=== PATIENT | female | born 1975 | race Caucasian/White ===

== ENCOUNTER 2018-07-11 23:54 | Observation (INO) | payer OTHER ==
[2018-07-12] MEDS ORDERED: Nitrostat 0.4 MG (ED) SL ONE ×2 (00:23→00:36)
[2018-07-12] MEDS ORDERED: NITRO-BID 2% UD PACKETS TOP ONE (00:23)
[2018-07-12] MEDS ORDERED: BABY ASPIRIN 81 MG CHEW PO ONE (00:23)
[2018-07-12] MEDS ORDERED: Sodium Chloride 0.9% 1000 ML 1,000 ML IV SCH (00:30)
--- NOTE | 2018-07-12 00:33 | ERPHSYRPT ---
- History of Present Illness Time Seen by Provider: 07/12/18 00:15 Historian: patient Exam Limitations: clinical condition Patient Subjective Stated Complaint: Chest pain in middle of chest that radiates to back, pt has had pain for a week, describes as nawing and twisting, feels like she has a bubble in chest that needs to be popped, SOB some times with exertion Triage Nursing Assessment: Pt a/o, ambulated per self with no distress, heart sounds normal and regular, lungs clear, cap refill <3 secs Physician History: PATIENT WITH A HISTORY OF HYPOTHYROIDISM COMPLAINING OF SUBSTERNAL DISCOMFORT WHICH SHE DESCRIBES A BURNING INDIGESTION DISCOMFORT OVER THE PAST 5 DAYS ASSOCIATED WITH EXERTION DYSPNEA. PATIENT STATES ON OCCASION, THE PLAN RADIATES TO HER BACK. PATIENT STATES CHEST PAIN IMPROVES UPON REST AFTER EXERCISE PATIENT DENIES DIAPHORESIS, PALPITATIONS COUGHING OR FEVER. PATIENT RATES HER PAIN SCALE 8/10. Timing/Duration: day(s) Activities at Onset: none Quality: burning, other (INDESTION) Chest Pain Radiation: back Severity of Pain-Max: moderate Severity of Pain-Current: moderate Modifying Factors: Improves With: exertion Prior Chest Pain/Cardiac Workup: no prior chest pain Nitro Today/Relief: 0.4 mg x 2, provided by ED Aspirin Treatment Today: 81 mg x 4, provided by ED Allergies/Adverse Reactions: Penicillins Allergy (Verified 07/11/18 23:57) Home Medications: Levothyroxine Sodium 50 Mcg [Synthroid 50 Mcg] 50 mcg PO DAILY 07/11/18 [ History] clonazePAM [Klonopin] 1 mg PO TID PRN 07/11/18 [History] Hx Tetanus, Diphtheria Vaccination/Date Given: Yes Hx Influenza Vaccination/Date Given: No - Review of Systems Constitutional: No Fever, No Chills Eyes: No Symptoms Ears, Nose, & Throat: No Symptoms Respiratory: No Symptoms, No Cough, No Dyspnea Cardiac: Chest Pain, No Edema, No Syncope Abdominal/Gastrointestinal: No Symptoms, No Abdominal Pain, No Nausea, No Vomiting, No Diarrhea Genitourinary Symptoms: No Symptoms, No Dysuria Musculoskeletal: No Symptoms, No Back Pain, No Neck Pain Skin: No Rash Neurological: No Dizziness, No Focal Weakness, No Sensory Changes Psychological: No Symptoms Endocrine: No Symptoms All Other Systems: Reviewed and Negative - Past Medical History Pertinent Past Medical History: Yes Endocrine Medical History: Hypothyroidism Psycho-Social History: Anxiety, Depression - Past Surgical History Past Surgical History: Yes Musculoskeletal: Other Female Surgical History: Section Other Surgical History: R arm, R leg - Social History Smoking Status: Current every day smoker How long have you smoked: 16 years Drug Use: none - Female History Hx Now: No - Nursing Vital Signs Nursing Vital Signs: Initial Vital Signs Temperature 98.3 F 07/11/18 23:56 Pulse Rate 85 07/11/18 23:56 Respiratory Rate 20 07/11/18 23:56 Blood Pressure 144/95 07/11/18 23:56 O2 Sat by Pulse Oximetry 93 L 07/11/18 23:56 Pain Scale Pain Intensity 6 - Physical Exam General Appearance: no apparent distress, alert Eye Exam: PERRL/EOMI, eyes nml inspection Ears, Nose, Throat Exam: normal ENT inspection, moist mucous membranes Neck Exam: normal inspection, non-tender, supple, full range of motion Respiratory Exam: normal breath sounds, lungs clear, No respiratory distress Cardiovascular Exam: regular rate/rhythm, normal heart sounds Gastrointestinal/Abdomen Exam: soft, No tenderness, No mass Back Exam: normal inspection, No CVA tenderness, No vertebral tenderness Extremity Exam: normal inspection, normal range of motion, No pedal edema (+1) Neurologic Exam: alert, oriented x 3, cooperative, normal mood/affect, sensation nml, No motor deficits Skin Exam: normal color, warm, dry SpO2 Interpretation: normal SpO2: 93 Oxygen Delivery: Room Air - Course EKG Interpreted by Me: RATE, Sinus Rhythm, NORMAL AXIS (RATE 86) - Radiology Exams Chest X-ray Interpretation: Interpreted by me (MILD CARDIOMEGALY) Ordered Tests: Active Orders 24 hr Category Date Time Status Licensed Architect STAT Care 07/12/18 00:25 Active EKG-ER Only STAT Care 07/12/18 00:23 Active Oxygen-ED Only NASAL CANNULA 2 lpm Care 07/12/18 00:23 Active CHEST 1 VIEW (PORTABLE) Stat Exams 07/12/18 00:24 Taken CBC W DIFF Stat Lab 07/12/18 00:43 Completed CMP Stat Lab 07/12/18 00:43 Completed D-DIMER QUANTITATION Stat Lab 07/12/18 00:43 Completed MAGNESIUM Stat Lab 07/12/18 00:43 Completed NT PRO BNP Stat Lab 07/12/18 00:43 Completed PROTIME WITH INR Stat Lab 07/12/18 00:43 Completed TROPONIN Q3H Lab 07/12/18 00:43 Completed TROPONIN Q3H Lab 07/12/18 03:30 Ordered TROPONIN Q3H Lab 07/12/18 06:30 Ordered TROPONIN Q3H Lab 07/12/18 09:30 Ordered TROPONIN Q3H Lab 07/12/18 12:30 Ordered Transfer Order Routine Transfer 07/12/18 Ordered Medication Summary Generic Name Dose Route Start Last Admin Trade Name Freq PRN Reason Stop Dose Admin Sodium Chloride 1,000 mls @ 20 mls/hr 07/12/18 00:30 07/12/18 00:46 Sodium Chloride 0.9% 1000 Ml IV 08/11/18 00:29 20 mls/hr .Q24H [facility] Administration Discontinued Medications Generic Name Dose Route Start Last Admin Trade Name Freq PRN Reason Stop Dose Admin Aspirin 324 mg 07/12/18 00:23 07/12/18 00:46 Baby Aspirin 81 Mg Chew PO 07/12/18 00:24 324 mg STAT ONE Administration Aspirin Confirm 07/12/18 00:36 Baby Aspirin 81 Mg Chew Administered 07/12/18 00:37 Dose 324 mg .ROUTE .STK-MED ONE Nitroglycerin 0.4 mg 07/12/18 00:23 07/12/18 00:44 Nitrostat 0.4 Mg (Ed) SL 07/12/18 00:24 0.4 mg STAT ONE Administration Nitroglycerin 1 gm 07/12/18 00:23 07/12/18 00:43 Nitro-Bid 2% Ud Packets TOP 07/12/18 00:24 1 gm STAT ONE Administration Nitroglycerin Confirm 07/12/18 00:36 Nitro-Bid 2% Ud Packets Administered 07/12/18 00:37 Dose 1 gm .ROUTE .STK-MED ONE Nitroglycerin Confirm 07/12/18 00:36 Nitrostat 0.4 Mg (Ed) Administered 07/12/18 00:37 Dose 0.4 mg SL .STK-MED ONE Lab/Rad Data: Laboratory Result Diagrams 07/12/18 00:43 07/12/18 00:43 Laboratory Results 07/12/18 07/12/18 07/12/18 Range/Units 00:43 00:43 00:43 WBC (4.0-10.5) K/mm3 RBC (4.1-5.4) M/mm3 Hgb (12.0-16.0) gm/dl Hct (35-47) % MCV (78-100) fl MCH (26-32) pg MCHC (32-36) g/dl RDW (11.5-14.0) % Plt Count (150-450) K/mm3 MPV (6-9.5) fl Gran % (36.0-66.0) % Eos # (Auto) (0-0.5) Absolute Lymphs (auto) (1.0-4.6) Absolute Monos (auto) (0.0-1.3) Lymphocytes % (24.0-44.0) % Monocytes % (0.0-12.0) % Eosinophils % (0.00-5.0) % Basophils % (0.0-0.4) % Absolute Granulocytes (1.4-6.9) Basophils # (0-0.4) PT 11.3 (9.95-12.35) SECONDS INR 0.97 (0.8-3.0) D-Dimer 483 (215-500) ng/mL Sodium 139 (137-145) mmol/L Potassium 4.0 (3.5-5.1) mmol/L Chloride 100 (98-107) mmol/L Carbon Dioxide 32 H (22-30) mmol/L Anion Gap 10.4 (5-15) MEQ/L BUN 18 H (7-17) mg/dL Creatinine 0.86 (0.52-1.04) mg/dL Estimated GFR > 60.0 ML/MIN Glucose 81 (74-106) mg/dL Calcium 9.5 (8.4-10.2) mg/dL Magnesium 1.7 (1.6-2.3) mg/dL Total Bilirubin 0.70 (0.2-1.3) mg/dL AST 23 (14-36) U/L ALT 21 (0-35) U/L Alkaline Phosphatase 103 (38-126) U/L Troponin I < 0.012 (0.000-0.034) ng/mL NT-Pro-B Natriuret Pep 47.9 (0-450) pg/mL Serum Total Protein 7.7 (6.3-8.2) g/dL Albumin 4.1 (3.5-5.0) g/dL 07/12/18 Range/Units 00:43 WBC 9.0 (4.0-10.5) K/mm3 RBC 4.63 (4.1-5.4) M/mm3 Hgb 13.2 (12.0-16.0) gm/dl Hct 42.5 (35-47) % MCV 91.8 (78-100) fl MCH 28.5 (26-32) pg MCHC 31.1 L (32-36) g/dl RDW 15.1 H (11.5-14.0) % Plt Count 293 (150-450) K/mm3 MPV 10.1 H (6-9.5) fl Gran % 70.1 H (36.0-66.0) % Eos # (Auto) 0.08 (0-0.5) Absolute Lymphs (auto) 1.69 (1.0-4.6) Absolute Monos (auto) 0.90 (0.0-1.3) Lymphocytes % 18.8 L (24.0-44.0) % Monocytes % 10.0 (0.0-12.0) % Eosinophils % 0.9 (0.00-5.0) % Basophils % 0.2 (0.0-0.4) % Absolute Granulocytes 6.31 (1.4-6.9) Basophils # 0.02 (0-0.4) PT (9.95-12.35) SECONDS INR (0.8-3.0) D-Dimer (215-500) ng/mL Sodium (137-145) mmol/L Potassium (3.5-5.1) mmol/L Chloride (98-107) mmol/L Carbon Dioxide (22-30) mmol/L Anion Gap (5-15) MEQ/L BUN (7-17) mg/dL Creatinine (0.52-1.04) mg/dL Estimated GFR ML/MIN Glucose (74-106) mg/dL Calcium (8.4-10.2) mg/dL Magnesium (1.6-2.3) mg/dL Total Bilirubin (0.2-1.3) mg/dL AST (14-36) U/L ALT (0-35) U/L Alkaline Phosphatase (38-126) U/L Troponin I (0.000-0.034) ng/mL NT-Pro-B Natriuret Pep (0-450) pg/mL Serum Total Protein (6.3-8.2) g/dL Albumin (3.5-5.0) g/dL - Progress Progress Note: 07/12/18 01:49 ADMINISTERED BABY ASA X 4, NTG 0.4MG SL, APPLICATION NITROPASTE 1" ANTERIOR CHEST WALL, CHEST PAIN IMPROVED Discussed with Dr.: Gomez (DISCUSSED WITH DR GOMEZ AT 0150 FOR OBSERVATION) - Departure Time of Disposition: 02:00 Departure Disposition: Observation Clinical Impression: ACUTE CHEST PAIN Condition: Stable Critical Care Time: No Referrals: PEYTON MUÑOZ [Primary Care Provider] -
[2018-07-12] MEDS ORDERED: NITRO-BID 2% UD PACKETS ONE (00:36)
[2018-07-12] MEDS ORDERED: BABY ASPIRIN 81 MG CHEW ONE (00:36)
[2018-07-12 00:52] LABS: BASOPHIL % 0.2 % (0.0-0.4); Basophil (Absolute #) 0.02 (0-0.4); Eosinophil % 0.9 % (0.00-5.0); Eosinophil (Absolute #) 0.08 (0-0.5); Granulocyte Absolute (ANC) 6.31 (1.4-6.9); Granulocytes % 70.1 % (36.0-66.0); Hematocrit 42.5 % (35-47); Hemoglobin 13.2 gm/dl (12.0-16.0); Lymphocyte (Absolute #) 1.69 (1.0-4.6); Lymphocytes % 18.8 % (24.0-44.0); Mean Cell Volume 91.8 fl (78-100); Mean Corpuscular Hemoglobin 28.5 pg (26-32); Mean Corpuscular Hgb Concent. 31.1 g/dl (32-36); Mean Platelet Volume 10.1 fl (6-9.5); Platelet Count 293 K/mm3 (150-450); Red Blood Count 4.63 M/mm3 (4.1-5.4); Red Cell Distribution Width 15.1 % (11.5-14.0)
[2018-07-12 01:05] LABS: INR 0.97 (0.8-3.0)
[2018-07-12 01:07] LABS: ALBUMIN 4.1 g/dL (3.5-5.0); ALKALINE PHOSPHATASE 103 U/L (38-126); ANION GAP 10.4 MEQ/L (5-15); BLOOD UREA NITROGEN 18 mg/dL (7-17); CHLORIDE 100 mmol/L (98-107); Calcium 9.5 mg/dL (8.4-10.2); Carbon Dioxide 32 mmol/L (22-30); Creatinine 1 0.86 mg/dL (0.52-1.04); Glucose 81 mg/dL (74-106); NT PRO BNP 47.9 pg/mL (0-450); SGOT/AST 23 U/L (14-36); SGPT/ALT 21 U/L (0-35); SODIUM 139 mmol/L (137-145); Total Protein 7.7 g/dL (6.3-8.2)
[2018-07-12] MEDS ORDERED: MORPHINE SULFATE 2 MG INJ IV PRN (02:33)
[2018-07-12] MEDS ORDERED: MAALOX ES 30 ML UNIT DOSE PO PRN (02:33)
[2018-07-12] MEDS ORDERED: MILK OF MAGNESIA 30 ML PO PRN (02:33)
[2018-07-12] MEDS ORDERED: TYLENOL 325 MG PO PRN (02:33)
[2018-07-12] MEDS ORDERED: Zofran 4 MG/2 ML VIAL IV PRN (02:33)
[2018-07-12] MEDS ORDERED: Senokot-S Tablet PO PRN (02:33)
[2018-07-12] MEDS ORDERED: Nitrostat 0.4 MG Tablet SL PRN (02:33)
[2018-07-12] MEDS ORDERED: Klonopin 0.5 MG PO PRN (07:15)
[2018-07-12 07:26] LABS: Cholesterol 116 mg/dL (50-200); HDL CHOLESTEROL 47 mg/dL (40-60); LDL, DIRECT 62 mg/dL (30-100); Risk Ratio 2.5; TRIGLYCERIDE 69 mg/dL (30-150)
[2018-07-12 07:27] LABS: TROPONIN < 0.012 ng/mL (0.000-0.034)
--- NOTE | 2018-07-12 09:36 | XRAY ---
Indication: Chest pain. Comparison: None Portable apical lordotic chest demonstrates a few calcified granulomas, largest right upper lobe. Remaining heart, lungs, and bony thorax normal.
[2018-07-12] MEDS ORDERED: Ecotrin 325 MG PO SCH (10:00)
[2018-07-12] MEDS ORDERED: SYNTHROID 50 MCG PO SCH (10:00)
[2018-07-12] MEDS ORDERED: Pepcid 20 MG VIAL IV SCH (10:00)
--- NOTE | 2018-07-12 12:37 | PCM.SSS ---
History of Present Illness - Chief Complaint Chief Complaint: chest pain rule out History of Present Illness: is a 42 year old female morbidly obese, hypothyroid pt of Dr. Muñoz who came to ER c/o chest pain and neck pain. She had pain x 1 week intermittently, but was more constant for the past 3 d. 8/10 substernal chest pain, sharp, radiating into the back. no N, + palpitations and + diaphoresis. She also c/o pain in the neck that was 7/10, pressure, "in the glands." EKG non acute. troponin negative. Admitted for CP r/o PR. She has + FHx coronary artery disease; parents both had CAD starting in their 50s. She does smoke 3/4 pack cigarettes/d. She hasn't seen Dr. Muñoz since March 2018. She stopped taking her thyroid medicine x 6 weeks because she couldn't remember to take it - she did start taking it again 4d ago. This morning her chest pain is down to 2/10. Still having neck discomfort. - Review of Systems Ears, Nose, & Throat: Other (neck pain) Respiratory: Cough (overall no cough but did have mild sputum production yesterday) Cardiac: Chest Pain Abdominal/Gastrointestinal: Diarrhea (2d ago) Psychological: Anxiety (this month about her health), No Depression, No Suicidal Ideations Medications & Allergies Home Medications: Home Medication List Levothyroxine Sodium 50 Mcg [Synthroid 50 Mcg] 50 mcg PO DAILY 07/11/18 [ History Confirmed 07/12/18] clonazePAM [Klonopin] 1 mg PO TID PRN 07/11/18 [History Confirmed 07/12/18] Citalopram Hydrobromide 20 mg* [ceLEXa 20 MG] 20 mg PO DAILY 07/12/18 [ History Confirmed 07/12/18] Allergies/Adverse Reactions: Allergies Allergy/AdvReac Type Severity Reaction Status Date / Time Penicillins Allergy Verified 07/11/18 23:57 - Past Medical History Past Medical History: Yes Neurological History: No Pertinent History ENT History: No Pertinent History Cardiac History: No Pertinent History Respiratory History: Bronchitis Endocrine Medical History: No Pertinent History, Hypothyroidism Musculoskelatal History: Arthritis, Fractures GI Medical History: No Pertinent History History: No Pertinent History Pyscho-Social History: Anxiety, Depression, Panic Disorder Reproductive Disorders: No Pertinent History Comment: fx lt leg, rt ankle with 7 screws and a plate, pins to rt elbow - Female History Are you now?: No - Past Surgical History Past Surgical History: Yes Neuro Surgical History: No Pertinent History Cardiac History: No Pertinent History Respiratory Surgery: No Pertinent History Genitourinary Surgical Hx: No Pertinent History Musculskeletal Surgical Hx: Orthopedic Surgery Female Surgical History: Section, Tubal Ligation Other Surgical History: R arm, R leg - Social History Smoking Status: Current every day smoker How long have you smoked: 16 yrs Exposure to second hand smoke: Yes Alcohol: Rarely Drug Use: none - Physical Exam Vital Signs: Vital Signs - 24 hr Temp Pulse Pulse Resp BP Pulse Ox 07/12/18 07:14 95 07/12/18 07:11 98.1 F 80 18 122/72 94 L 07/12/18 03:05 98.2 F 85 19 115/73 96 07/12/18 01:59 93 L 07/12/18 01:57 80 21 114/70 97 07/12/18 01:08 85 20 105/81 98 07/12/18 00:03 88 07/11/18 23:56 98.3 F 85 20 144/95 93 L Oxygen-Last 24 hours O2 Percentage 2 Liters = 28% O2 Percentage 2 Liters = 28% O2 Percentage 2 Liters = 28% O2 Percentage 2 Liters = 28% General Appearance: no apparent distress, obese (morbidly) Neurologic Exam: alert, oriented x 3, cooperative Eye Exam: eyes nml inspection Ears, Nose, Throat Exam: pharynx normal, moist mucous membranes, No pharyngeal erythema Neck Exam: normal inspection, non-tender, No lymphadenopathy Respiratory Exam: normal breath sounds, lungs clear, No crackles/rales, No rhonchi, No wheezing Cardiovascular Exam: regular rate/rhythm, normal heart sounds, No murmur Gastrointestinal/Abdomen Exam: soft, normal bowel sounds, other (well healed midline scar), No tenderness, No distention, No mass, No guarding, No rebound Back Exam: normal inspection, No rash Extremity Exam: No pedal edema, No swelling Skin Exam: normal color, warm, dry, No rash Results - Labs Lab/Micro Results: Lab Results-Last 24 Hours 07/12/18 07/12/18 07/12/18 Range/Units 00:43 00:43 00:43 WBC 9.0 (4.0-10.5) K/mm3 RBC 4.63 (4.1-5.4) M/mm3 Hgb 13.2 (12.0-16.0) gm/dl Hct 42.5 (35-47) % MCV 91.8 (78-100) fl MCH 28.5 (26-32) pg MCHC 31.1 L (32-36) g/dl RDW 15.1 H (11.5-14.0) % Plt Count 293 (150-450) K/mm3 MPV 10.1 H (6-9.5) fl Gran % 70.1 H (36.0-66.0) % Eos # (Auto) 0.08 (0-0.5) Absolute Lymphs (auto) 1.69 (1.0-4.6) Absolute Monos (auto) 0.90 (0.0-1.3) Lymphocytes % 18.8 L (24.0-44.0) % Monocytes % 10.0 (0.0-12.0) % Eosinophils % 0.9 (0.00-5.0) % Basophils % 0.2 (0.0-0.4) % Absolute Granulocytes 6.31 (1.4-6.9) Basophils # 0.02 (0-0.4) PT 11.3 (9.95-12.35) SECONDS INR 0.97 (0.8-3.0) D-Dimer 483 (215-500) ng/mL Sodium 139 (137-145) mmol/L Potassium 4.0 (3.5-5.1) mmol/L Chloride 100 (98-107) mmol/L Carbon Dioxide 32 H (22-30) mmol/L Anion Gap 10.4 (5-15) MEQ/L BUN 18 H (7-17) mg/dL Creatinine 0.86 (0.52-1.04) mg/dL Estimated GFR > 60.0 ML/MIN Glucose 81 (74-106) mg/dL Calcium 9.5 (8.4-10.2) mg/dL Magnesium 1.7 (1.6-2.3) mg/dL Total Bilirubin 0.70 (0.2-1.3) mg/dL AST 23 (14-36) U/L ALT 21 (0-35) U/L Alkaline Phosphatase 103 (38-126) U/L Troponin I (0.000-0.034) ng/mL NT-Pro-B Natriuret Pep 47.9 (0-450) pg/mL Serum Total Protein 7.7 (6.3-8.2) g/dL Albumin 4.1 (3.5-5.0) g/dL Triglycerides (30-150) mg/dL Cholesterol (50-200) mg/dL LDL Cholesterol (30-100) mg/dL HDL Cholesterol (40-60) mg/dL Heart Disease Risk Ratio 07/12/18 07/12/18 07/12/18 Range/Units 00:43 04:14 06:35 WBC (4.0-10.5) K/mm3 RBC (4.1-5.4) M/mm3 Hgb (12.0-16.0) gm/dl Hct (35-47) % MCV (78-100) fl MCH (26-32) pg MCHC (32-36) g/dl RDW (11.5-14.0) % Plt Count (150-450) K/mm3 MPV (6-9.5) fl Gran % (36.0-66.0) % Eos # (Auto) (0-0.5) Absolute Lymphs (auto) (1.0-4.6) Absolute Monos (auto) (0.0-1.3) Lymphocytes % (24.0-44.0) % Monocytes % (0.0-12.0) % Eosinophils % (0.00-5.0) % Basophils % (0.0-0.4) % Absolute Granulocytes (1.4-6.9) Basophils # (0-0.4) PT (9.95-12.35) SECONDS INR (0.8-3.0) D-Dimer (215-500) ng/mL Sodium (137-145) mmol/L Potassium (3.5-5.1) mmol/L Chloride (98-107) mmol/L Carbon Dioxide (22-30) mmol/L Anion Gap (5-15) MEQ/L BUN (7-17) mg/dL Creatinine (0.52-1.04) mg/dL Estimated GFR ML/MIN Glucose (74-106) mg/dL Calcium (8.4-10.2) mg/dL Magnesium (1.6-2.3) mg/dL Total Bilirubin (0.2-1.3) mg/dL AST (14-36) U/L ALT (0-35) U/L Alkaline Phosphatase (38-126) U/L Troponin I < 0.012 < 0.012 < 0.012 (0.000-0.034) ng/mL NT-Pro-B Natriuret Pep (0-450) pg/mL Serum Total Protein (6.3-8.2) g/dL Albumin (3.5-5.0) g/dL Triglycerides 69 (30-150) mg/dL Cholesterol 116 (50-200) mg/dL LDL Cholesterol 62 (30-100) mg/dL HDL Cholesterol 47 (40-60) mg/dL Heart Disease Risk Ratio 2.5 07/12/18 Range/Units 09:35 WBC (4.0-10.5) K/mm3 RBC (4.1-5.4) M/mm3 Hgb (12.0-16.0) gm/dl Hct (35-47) % MCV (78-100) fl MCH (26-32) pg MCHC (32-36) g/dl RDW (11.5-14.0) % Plt Count (150-450) K/mm3 MPV (6-9.5) fl Gran % (36.0-66.0) % Eos # (Auto) (0-0.5) Absolute Lymphs (auto) (1.0-4.6) Absolute Monos (auto) (0.0-1.3) Lymphocytes % (24.0-44.0) % Monocytes % (0.0-12.0) % Eosinophils % (0.00-5.0) % Basophils % (0.0-0.4) % Absolute Granulocytes (1.4-6.9) Basophils # (0-0.4) PT (9.95-12.35) SECONDS INR (0.8-3.0) D-Dimer (215-500) ng/mL Sodium (137-145) mmol/L Potassium (3.5-5.1) mmol/L Chloride (98-107) mmol/L Carbon Dioxide (22-30) mmol/L Anion Gap (5-15) MEQ/L BUN (7-17) mg/dL Creatinine (0.52-1.04) mg/dL Estimated GFR ML/MIN Glucose (74-106) mg/dL Calcium (8.4-10.2) mg/dL Magnesium (1.6-2.3) mg/dL Total Bilirubin (0.2-1.3) mg/dL AST (14-36) U/L ALT (0-35) U/L Alkaline Phosphatase (38-126) U/L Troponin I < 0.012 (0.000-0.034) ng/mL NT-Pro-B Natriuret Pep (0-450) pg/mL Serum Total Protein (6.3-8.2) g/dL Albumin (3.5-5.0) g/dL Triglycerides (30-150) mg/dL Cholesterol (50-200) mg/dL LDL Cholesterol (30-100) mg/dL HDL Cholesterol (40-60) mg/dL Heart Disease Risk Ratio - Radiology Impressions Radiology Exams & Impressions: Radiology Procedures Category Date Time Status CHEST 1 VIEW (PORTABLE) Stat Exams 07/12/18 00:24 Completed - Other Procedures and Tests Respiratory Therapy 07/13/18 05:00 EKG ROUTINE 07/14/18 05:00 EKG ROUTINE 07/15/18 05:00 EKG ROUTINE Assessment/Plan (1) Chest pain Current Visit: Yes Status: Acute Qualifiers: Chest pain type: unspecified Qualified Code(s): R07.9 - Chest pain, unspecified Assessment & Plan: PR ruled out. Pain much better. She is morbidly obese and a smoker with positive family history - she needs to f/u MALINDA with Dr. Muñoz's office for an outpatient stress test. Code(s): R07.9 - CHEST PAIN, UNSPECIFIED (2) Neck pain Current Visit: Yes Status: Acute Assessment & Plan: could be related to thyroid or simply lymph nodes. Code(s): M54.2 - CERVICALGIA (3) Morbid obesity Current Visit: Yes Status: Chronic Code(s): E66.01 - MORBID (SEVERE) OBESITY DUE TO EXCESS CALORIES (4) Tobacco abuse Current Visit: Yes Status: Chronic Code(s): Z72.0 - TOBACCO USE (5) Hypothyroid Current Visit: Yes Status: Chronic Qualifiers: Hypothyroidism type: unspecified Qualified Code(s): E03.9 - Hypothyroidism , unspecified Assessment & Plan: rechecking TSH today, but she has only had 4d of synthroid after being off of it x 6 weeks. Code(s): E03.9 - HYPOTHYROIDISM, UNSPECIFIED Hospital Summary - Hospital Course Hospital Course: Pt is 42 yo female pt of Dr. Muñoz with morbid obesity, tobacco use disorder, and hypothyroidism admitted with chest pain and neck pain; troponins have been negative x 4, and after the 5th troponin is negative she will be discharged to home. She needs to f/u outpatient with Dr. Muñoz's office regarding her thyroid (has been off her synthroid) and to get an outpatient stress test.. CXR in ER with few calcified granulomas, nonacute. She is being discharged to home this afternoon. - Vitals & Intake/Output Vital Signs: Vital Signs Temperature 98.1 F 07/12/18 07:11 Pulse Rate 80 07/12/18 07:11 Respiratory Rate 18 07/12/18 07:11 Blood Pressure 122/72 07/12/18 07:11 O2 Sat by Pulse Oximetry 95 07/12/18 07:14 Oxygen-Last Documented O2 Percentage 2 Liters = 28% Intake & Output: Intake & Output 07/10/18 07/11/18 07/12/18 07/13/18 11:59 11:59 11:59 11:59 Intake Total 480 Balance 480 Weight 186 kg - Lab Result Diagrams: 07/12/18 00:43 07/12/18 00:43 Lab Results-Last 24 Hrs: Lab Results-Last 24 Hours 07/12/18 07/12/18 07/12/18 Range/Units 00:43 00:43 00:43 WBC 9.0 (4.0-10.5) K/mm3 RBC 4.63 (4.1-5.4) M/mm3 Hgb 13.2 (12.0-16.0) gm/dl Hct 42.5 (35-47) % MCV 91.8 (78-100) fl MCH 28.5 (26-32) pg MCHC 31.1 L (32-36) g/dl RDW 15.1 H (11.5-14.0) % Plt Count 293 (150-450) K/mm3 MPV 10.1 H (6-9.5) fl Gran % 70.1 H (36.0-66.0) % Eos # (Auto) 0.08 (0-0.5) Absolute Lymphs (auto) 1.69 (1.0-4.6) Absolute Monos (auto) 0.90 (0.0-1.3) Lymphocytes % 18.8 L (24.0-44.0) % Monocytes % 10.0 (0.0-12.0) % Eosinophils % 0.9 (0.00-5.0) % Basophils % 0.2 (0.0-0.4) % Absolute Granulocytes 6.31 (1.4-6.9) Basophils # 0.02 (0-0.4) PT 11.3 (9.95-12.35) SECONDS INR 0.97 (0.8-3.0) D-Dimer 483 (215-500) ng/mL Sodium 139 (137-145) mmol/L Potassium 4.0 (3.5-5.1) mmol/L Chloride 100 (98-107) mmol/L Carbon Dioxide 32 H (22-30) mmol/L Anion Gap 10.4 (5-15) MEQ/L BUN 18 H (7-17) mg/dL Creatinine 0.86 (0.52-1.04) mg/dL Estimated GFR > 60.0 ML/MIN Glucose 81 (74-106) mg/dL Calcium 9.5 (8.4-10.2) mg/dL Magnesium 1.7 (1.6-2.3) mg/dL Total Bilirubin 0.70 (0.2-1.3) mg/dL AST 23 (14-36) U/L ALT 21 (0-35) U/L Alkaline Phosphatase 103 (38-126) U/L Troponin I (0.000-0.034) ng/mL NT-Pro-B Natriuret Pep 47.9 (0-450) pg/mL Serum Total Protein 7.7 (6.3-8.2) g/dL Albumin 4.1 (3.5-5.0) g/dL Triglycerides (30-150) mg/dL Cholesterol (50-200) mg/dL LDL Cholesterol (30-100) mg/dL HDL Cholesterol (40-60) mg/dL Heart Disease Risk Ratio 07/12/18 07/12/18 07/12/18 Range/Units 00:43 04:14 06:35 WBC (4.0-10.5) K/mm3 RBC (4.1-5.4) M/mm3 Hgb (12.0-16.0) gm/dl Hct (35-47) % MCV (78-100) fl MCH (26-32) pg MCHC (32-36) g/dl RDW (11.5-14.0) % Plt Count (150-450) K/mm3 MPV (6-9.5) fl Gran % (36.0-66.0) % Eos # (Auto) (0-0.5) Absolute Lymphs (auto) (1.0-4.6) Absolute Monos (auto) (0.0-1.3) Lymphocytes % (24.0-44.0) % Monocytes % (0.0-12.0) % Eosinophils % (0.00-5.0) % Basophils % (0.0-0.4) % Absolute Granulocytes (1.4-6.9) Basophils # (0-0.4) PT (9.95-12.35) SECONDS INR (0.8-3.0) D-Dimer (215-500) ng/mL Sodium (137-145) mmol/L Potassium (3.5-5.1) mmol/L Chloride (98-107) mmol/L Carbon Dioxide (22-30) mmol/L Anion Gap (5-15) MEQ/L BUN (7-17) mg/dL Creatinine (0.52-1.04) mg/dL Estimated GFR ML/MIN Glucose (74-106) mg/dL Calcium (8.4-10.2) mg/dL Magnesium (1.6-2.3) mg/dL Total Bilirubin (0.2-1.3) mg/dL AST (14-36) U/L ALT (0-35) U/L Alkaline Phosphatase (38-126) U/L Troponin I < 0.012 < 0.012 < 0.012 (0.000-0.034) ng/mL NT-Pro-B Natriuret Pep (0-450) pg/mL Serum Total Protein (6.3-8.2) g/dL Albumin (3.5-5.0) g/dL Triglycerides 69 (30-150) mg/dL Cholesterol 116 (50-200) mg/dL LDL Cholesterol 62 (30-100) mg/dL HDL Cholesterol 47 (40-60) mg/dL Heart Disease Risk Ratio 2.5 07/12/18 Range/Units 09:35 WBC (4.0-10.5) K/mm3 RBC (4.1-5.4) M/mm3 Hgb (12.0-16.0) gm/dl Hct (35-47) % MCV (78-100) fl MCH (26-32) pg MCHC (32-36) g/dl RDW (11.5-14.0) % Plt Count (150-450) K/mm3 MPV (6-9.5) fl Gran % (36.0-66.0) % Eos # (Auto) (0-0.5) Absolute Lymphs (auto) (1.0-4.6) Absolute Monos (auto) (0.0-1.3) Lymphocytes % (24.0-44.0) % Monocytes % (0.0-12.0) % Eosinophils % (0.00-5.0) % Basophils % (0.0-0.4) % Absolute Granulocytes (1.4-6.9) Basophils # (0-0.4) PT (9.95-12.35) SECONDS INR (0.8-3.0) D-Dimer (215-500) ng/mL Sodium (137-145) mmol/L Potassium (3.5-5.1) mmol/L Chloride (98-107) mmol/L Carbon Dioxide (22-30) mmol/L Anion Gap (5-15) MEQ/L BUN (7-17) mg/dL Creatinine (0.52-1.04) mg/dL Estimated GFR ML/MIN Glucose (74-106) mg/dL Calcium (8.4-10.2) mg/dL Magnesium (1.6-2.3) mg/dL Total Bilirubin (0.2-1.3) mg/dL AST (14-36) U/L ALT (0-35) U/L Alkaline Phosphatase (38-126) U/L Troponin I < 0.012 (0.000-0.034) ng/mL NT-Pro-B Natriuret Pep (0-450) pg/mL Serum Total Protein (6.3-8.2) g/dL Albumin (3.5-5.0) g/dL Triglycerides (30-150) mg/dL Cholesterol (50-200) mg/dL LDL Cholesterol (30-100) mg/dL HDL Cholesterol (40-60) mg/dL Heart Disease Risk Ratio - Radiology Exams Ordered Rad Exams-Entire Visit: Radiology Procedures Category Date Time Status CHEST 1 VIEW (PORTABLE) Stat Exams 07/12/18 00:24 Completed - Procedures and Test Procedures and Tests throughout Hospitalization: Therapy Orders & Screens 07/12/18 03:27 Smoking Cessation Education ONCE Comment: Diagnosis: chest pain rule out Smoking Status: Current every day smoker How long have you smoked: 16 yrs Have you smoked in the past 12 months: Yes Approximately how many cigarettes per day: 15 Do you dip or chew tobacco: No 07/12/18 08:00 EKG ROUTINE Comment: Diagnosis: ACUTE CHEST PAIN 07/13/18 05:00 EKG ROUTINE Comment: Diagnosis: ACUTE CHEST PAIN 07/14/18 05:00 EKG ROUTINE Comment: Diagnosis: ACUTE CHEST PAIN 07/15/18 05:00 EKG ROUTINE Comment: Diagnosis: ACUTE CHEST PAIN - Discharge Disposition: Home, Self-Care Condition: Stable Prescriptions: Continue Levothyroxine Sodium 50 Mcg [Synthroid 50 Mcg] 50 mcg PO DAILY clonazePAM [Klonopin] 1 mg PO TID PRN Citalopram Hydrobromide 20 mg* [ceLEXa 20 MG] 20 mg PO DAILY Follow up with: PEYTON MUÑOZ [Primary Care Provider] - 1 Week
[2018-07-12 13:12] VITALS: BP 136/69; PULSE 75; O2SAT 93
== END 2018-07-12 14:30 | disposition home or self-care (01) ==
LOC: ED 23:54 → MED SURG 07-12 02:27
PROVIDERS: ADMIT Family Medicine; ATTEND Family Medicine
DX: R07.9 Chest pain, unspecified (principal); M54.2 Cervicalgia; E66.01 Morbid (severe) obesity due to excess calories; Z72.0 Tobacco use; E03.9 Hypothyroidism, unspecified
CPT/HCPCS: 36415; 71045; 80053; 80061; 83721; 83735; 83880; 84443; 84484; 85025; 85379; 85610; 93005; 93041; 93268; 94760; 96360; 99285; A9270-GY; G0378

== ENCOUNTER 2018-09-24 01:42 | Emergency (ER) | payer MEDICAID, OTHER ==
--- NOTE | 2018-09-24 02:01 | ERPHSYRPT ---
- History of Present Illness Time Seen by Provider: 09/24/18 02:00 Source: patient Patient Subjective Stated Complaint: states she has noticed a warm/hot hardened area nehins left breast nipple that is very painful and hurting. Triage Nursing Assessment: pt alert nad orietnedx3, able to ambulate by self gait is steady, skin warm dry and intact, both breast appear symetrical hardened area able to be palpated behind left nipple and some heat noted on skin of left breast in same location. Physician History: 43 y/o obese white female presents with tender, warm left breast and an associated infranipple mass. tendernes and mass came up within 2 to 3 days. pt is allergic to pcns but has taken keflex without any problems in the past Timing/Duration: day(s) (2 to 3) Severity: mild Allergies/Adverse Reactions: Penicillins Allergy (Verified 07/11/18 23:57) Home Medications: Levothyroxine Sodium 50 Mcg [Synthroid 50 Mcg] 50 mcg PO DAILY 07/11/18 [ History] clonazePAM [Klonopin] 1 mg PO TID PRN 07/11/18 [History] Citalopram Hydrobromide 20 mg* [ceLEXa 20 MG] 20 mg PO DAILY 07/12/18 [ History] Hx Tetanus, Diphtheria Vaccination/Date Given: Yes Hx Influenza Vaccination/Date Given: No Hx Pneumococcal Vaccination/Date Given: No Immunizations Up to Date: Yes - Review of Systems Constitutional: No Symptoms Eyes: No Symptoms Ears, Nose, & Throat: No Symptoms Respiratory: No Symptoms Cardiac: No Symptoms Abdominal/Gastrointestinal: No Symptoms Genitourinary Symptoms: No Symptoms Musculoskeletal: No Symptoms Skin: Other (tender left nipple with assoc mass) Neurological: No Symptoms Psychological: No Symptoms Endocrine: No Symptoms Hematologic/Lymphatic: No Symptoms Immunological/Allergic: No Symptoms All Other Systems: Reviewed and Negative - Past Medical History Pertinent Past Medical History: Yes Neurological History: No Pertinent History ENT History: No Pertinent History Cardiac History: No Pertinent History Respiratory History: Bronchitis Endocrine Medical History: No Pertinent History, Hypothyroidism Musculoskeletal History: Arthritis, Fractures GI Medical History: No Pertinent History History: No Pertinent History Psycho-Social History: Anxiety, Depression, Panic Disorder Female Reproductive Disorders: No Pertinent History Other Medical History: fx lt leg, rt ankle with 7 screws and a plate, pins to rt elbow - Past Surgical History Past Surgical History: Yes Neuro Surgical History: No Pertinent History Cardiac: No Pertinent History Respiratory: No Pertinent History Genitourinary: No Pertinent History Musculoskeletal: Orthopedic Surgery Female Surgical History: Section, Tubal Ligation Other Surgical History: R arm, R leg - Social History Smoking Status: Current every day smoker How long have you smoked: 16 yrs Exposure to second hand smoke: Yes Drug Use: none Patient Lives Alone: No - Female History Hx Now: No - Nursing Vital Signs Nursing Vital Signs: Initial Vital Signs Temperature 98.1 F 09/24/18 01:43 Pulse Rate 91 H 09/24/18 01:43 Respiratory Rate 20 09/24/18 01:43 Blood Pressure 154/97 09/24/18 01:43 O2 Sat by Pulse Oximetry 97 09/24/18 01:43 Pain Scale Pain Intensity 8 - Physical Exam General Appearance: no apparent distress, alert, anxiety Eye Exam: PERRL/EOMI, eyes nml inspection Ears, Nose, Throat Exam: normal ENT inspection, moist mucous membranes Neck Exam: normal inspection, non-tender, supple, full range of motion Respiratory Exam: normal breath sounds, lungs clear, airway intact, No chest tenderness, No respiratory distress, No accessory muscle use, No rhonchi, No wheezing, No stridor Cardiovascular Exam: regular rate/rhythm, normal heart sounds, normal peripheral pulses Gastrointestinal/Abdomen Exam: soft Pelvic Exam: not done Rectal Exam: not done Back Exam: normal inspection, normal range of motion, No CVA tenderness, No vertebral tenderness Extremity Exam: normal inspection, normal range of motion, pelvis stable Neurologic Exam: alert, oriented x 3, cooperative, 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 Skin Exam: warm, other (tender left nipple with infranipple palpable subq mass; no drainage.) Lymphatic Exam: No adenopathy SpO2 Interpretation: normal SpO2: 97 O2 Delivery: Room Air - Course Nursing assessment & vital signs reviewed: Yes Ordered Tests: Medication Summary Discontinued Medications Generic Name Dose Route Start Last Admin Trade Name Freq PRN Reason Stop Dose Admin Hydrocodone Bitart/Acetaminophen Confirm 09/24/18 02:44 [place] 5/325 Mg Administered 09/24/18 02:45 Dose 1 tab .ROUTE .STK-MED ONE Cephalexin HCl Confirm 09/24/18 02:43 Keflex 500 Mg Administered 09/24/18 02:44 Dose 500 mg .ROUTE .STK-MED ONE - Progress Progress: unchanged, pain not gone completely Counseled pt/family regarding: diagnosis, need for follow-up - Departure Time of Disposition: 02:52 Departure Disposition: Home Clinical Impression: Breast infection Condition: Stable Critical Care Time: No Referrals: PEYTON MUÑOZ [Primary Care Provider] - Additional Instructions: warm compresses or heating pad on warm setting, not directly on skin, apply 3 times daily. follow up with primary doctor today by phone to arrange follow up appointment including ultrasound if indicated. may add ibuprofen for pain. Prescriptions: Cephalexin Mh 500 mg [Keflex 500 mg] 500 mg PO TID #21 capsule
[2018-09-24 02:43] VITALS: O2SAT 97
[2018-09-24] MEDS ORDERED: KEFLEX 500 MG ONE (02:43)
[2018-09-24] MEDS ORDERED: NORCO 5/325 MG ONE (02:44)
[2018-09-24] MEDS ORDERED: KEFLEX 500 MG PO ONE (02:48)
[2018-09-24] MEDS: NORCO 5/325 MG PO ONE ×2 (02:50→06:24)
[2018-09-24 05:46] VITALS: BP 156/98; PULSE 84
== END 2018-09-24 03:04 | disposition home or self-care (01) ==
LOC: ED 01:42
DX: N61.0 Mastitis without abscess (principal); N64.4 Mastodynia; E03.9 Hypothyroidism, unspecified; F41.8 Other specified anxiety disorders
CPT/HCPCS: 99283; A9270-GY

== ENCOUNTER 2019-10-08 18:35 | Emergency (ER) | payer MEDICAID ==
[2019-10-08 19:49] VITALS: PULSE 80; O2SAT 95
--- NOTE | 2019-10-08 21:29 | ERPHSYRPT ---
- History of Present Illness Time Seen by Provider: 10/08/19 21:00 Source: patient, family Exam Limitations: no limitations Patient Subjective Stated Complaint: Patient states " my right leg is hurting very badly". Patient states she is unable to walk on right leg. Triage Nursing Assessment: Patient arrived to ER with spouse. Patient in W/C and brought her into room. Patient one assist with transfer to bed. Patient was at [facility] on 09/30/19 for cellulitis to right lower leg. Patient was given oral ATB and is currently still taking. Patient currently taking keflex. Patient right lower leg very edematous as from patient is her norm. Color is pale pink in coor. Bilateral lower extremities same warmth upon touch. Pedal pulse palpable. Patient complains of tenderness and pain when touched. Patient denies SOB. Patient with no S/S of respiratory distress noted. Physician History: This is a morbidly obese 44-year-old white female who presents with right lower extremity cellulitis and swelling. She has been diagnosed with cellulitis and has been taking Keflex orally for 8 days. In the last couple of days she has noticed increasing pain in her right lower extremity when ambulating. Her pain and swelling is much improved overnight. Patient denies fevers. Patient prefers no narcotic pain medicine and tramadol seems to help her without giving her nausea. Has no history of bleeding or clotting disorders. Patient denies shortness of breath and she denies cough she denies chest pain Method of Injury: other (Oh injury to legs) Occurred: days ago (And 8 days ago) Quality: aching, burning Severity of Pain-Max: moderate Severity of Pain-Current: moderate (Been ambulating) Lower Extremities Pain: leg: right Modifying Factors: Improves With: movement, other (Overnight improves) Allergies/Adverse Reactions: Penicillins Allergy (Verified 10/08/19 19:30) Home Medications: Levothyroxine Sodium 50 Mcg [Synthroid 50 Mcg] 50 mcg PO DAILY 07/11/18 [ History] clonazePAM [Klonopin] 1 mg PO TID PRN 07/11/18 [History] Citalopram Hydrobromide 20 mg* [ceLEXa 20 MG] 20 mg PO DAILY 07/12/18 [ History] Hx Tetanus, Diphtheria Vaccination/Date Given: Yes Hx Influenza Vaccination/Date Given: No Hx Pneumococcal Vaccination/Date Given: No Immunizations Up to Date: Yes - Review of Systems Constitutional: No Symptoms Eyes: No Symptoms Ears, Nose, & Throat: No Symptoms Respiratory: No Symptoms, No Dyspnea Cardiac: No Symptoms, No Chest Pain Abdominal/Gastrointestinal: No Symptoms Genitourinary Symptoms: No Symptoms Musculoskeletal: Other (Right lower leg with redness and swelling) Skin: Cellulitis (Extremity) Neurological: No Symptoms Psychological: No Symptoms Endocrine: No Symptoms Hematologic/Lymphatic: No Symptoms Immunological/Allergic: No Symptoms All Other Systems: Reviewed and Negative - Past Medical History Pertinent Past Medical History: Yes Neurological History: No Pertinent History ENT History: No Pertinent History Cardiac History: No Pertinent History Respiratory History: Bronchitis Endocrine Medical History: No Pertinent History, Hypothyroidism Musculoskeletal History: Arthritis, Fractures GI Medical History: No Pertinent History History: No Pertinent History Psycho-Social History: Anxiety, Depression, Panic Disorder Female Reproductive Disorders: No Pertinent History Other Medical History: fx lt leg, rt ankle with 7 screws and a plate, pins to rt elbow - Past Surgical History Past Surgical History: Yes Neuro Surgical History: No Pertinent History Cardiac: No Pertinent History Respiratory: No Pertinent History Gastrointestinal: No Pertinent History Genitourinary: No Pertinent History Musculoskeletal: Orthopedic Surgery Female Surgical History: Section, Tubal Ligation Other Surgical History: R arm, R leg - Social History Smoking Status: Former smoker How long have you smoked: 16 yrs Exposure to second hand smoke: No Drug Use: none Patient Lives Alone: No - Female History Hx Last Menstrual Period: Tubes Tied Hx Now: No - Nursing Vital Signs Nursing Vital Signs: Initial Vital Signs Temperature 97.6 F 10/08/19 19:34 Pulse Rate 80 10/08/19 19:34 Respiratory Rate 22 10/08/19 19:34 Blood Pressure 166/77 10/08/19 19:34 O2 Sat by Pulse Oximetry 95 10/08/19 19:34 Pain Scale Pain Intensity 10 - Physical Exam General Appearance: no apparent distress, alert, anxiety, obese Eyes, Ears, Nose, Throat Exam: normal ENT inspection, moist mucous membranes Neck Exam: normal inspection, non-tender, supple, full range of motion Cardiovascular/Respiratory Exam: normal breath sounds, regular rate/rhythm, heart sounds normal, no respiratory distress, No chest non-tender Gastrointestinal/Abdominal Exam: non-tender Back Exam: normal inspection, normal range of motion, No CVA tenderness, No vertebral tenderness Hips Exam: bilateral: non-tender, normal inspection, normal range of motion, no evidence of injury Legs Exam: right leg: swelling, left leg: non-tender, bilateral leg: normal range of motion, no evidence of injury, soft tissue tenderness (Cellulitis), other (Lymphedema) Knees Exam: bilateral knee: non-tender, normal inspection, normal range of motion, no evidence of injury Ankle Exam: bilateral ankle: non-tender, normal inspection, normal range of motion, no evidence of injury Foot Exam: right foot: infection, soft tissue tenderness (Dorsal right foot cellulitis), left foot: non-tender, normal inspection, normal range of motion, no evidence of injury Neuro/Tendon Exam: normal sensation, normal motor functions, normal tendon functions, responds to pain, no evidence tendon injury Mental Status Exam: alert, oriented x 3, cooperative Skin Exam: other (Cellulitis see above) SpO2 Interpretation: borderline oxygenation SpO2: 95 O2 Delivery: Room Air - Course Nursing assessment & vital signs reviewed: Yes Ordered Tests: Active Orders 24 hr Category Date Time Status VENOUS UNILAT/LIMITED EXTREMIT [US] Stat Exams 10/08/19 20:58 Ordered D-DIMER QUANTITATIVE Stat Lab 10/08/19 20:10 Completed Lab/Rad Data: Laboratory Results 10/08/19 Range/Units 20:10 D-Dimer 1578 H* (215-500) ng/mL - Progress Progress: improved Progress Note: 10/08/19 21:33 air technician states no visible deep venous thrombosis in the right lower extremity. 10/08/19 21:33 Had a long discussion with the patient and her spouse. The plan that we have agreed to is to provide the patient with intramuscular Rocephin injection followed by outpatient antibiotics. I will provide a prescription for Cipro antibiotics as well as tramadol for pain control. She is to stop the Keflex antibiotics. She is to keep her legs elevated above the level of her heart at home. We will give her a note to return to work on Friday, October 11, 2019. She is to return to the emergency room if her symptoms worsen. Counseled pt/family regarding: lab results, diagnosis, need for follow-up, rad results - Departure Departure Disposition: Home Clinical Impression: Cellulitis, Lymphedema Condition: Stable Critical Care Time: No Referrals: PEYTON MUÑOZ [Primary Care Provider] - Additional Instructions: Stop your Keflex antibiotics. Fill your Cipro and tramadol prescriptions and take as directed. Keep your legs elevated above the level of your heart while at home. No long-term standing. Follow-up with your primary care physician on Friday, October 11, 2019. Return to the emergency room if symptoms worsen. Forms: Work/School Release Form Prescriptions: Ciprofloxacin [Cipro 500 MG] 500 mg PO BID #14 tablet Tramadol HCl 50 mg [Ultram 50 mg] 50 mg PO TID PRN #15 tablet PRN Reason: Moderate Pain
[2019-10-08] MEDS ORDERED: ULTRAM 50 MG PO ONE (21:39)
[2019-10-08] MEDS ORDERED: Rocephin 1000 MG INJ IM ONE (21:39)
[2019-10-08] MEDS ORDERED: Cipro 500 MG PO ONE (21:40)
[2019-10-08] MEDS ORDERED: Rocephin 1000 MG INJ ONE (21:59)
[2019-10-08] MEDS ORDERED: ULTRAM 50 MG ONE (21:59)
[2019-10-08] MEDS ORDERED: Cipro 500 MG ONE (21:59)
[2019-10-08 22:26] VITALS: BP 133/88
--- NOTE | 2019-10-09 07:13 | XRAY ---
Indication: Right leg pain. Cellulitis. 2-dimensional sonogram and color Doppler imaging of the major venous vessels of the right leg was performed. Comparison: None Hand Endband Cutter notes technically difficult exam due to patient's body habitus. No obvious thrombus seen in the examined deep venous vessels of the right leg including greater saphenous vein. Veins demonstrate normal compressibility. Venous waveforms are normal with and without augmentation. Impression: Right leg negative for DVT. Comments: Preliminary report was given.
== END 2019-10-08 22:26 | disposition home or self-care (01) ==
LOC: ED 18:35
DX: L03.115 Cellulitis of right lower limb (principal); E03.9 Hypothyroidism, unspecified; F41.9 Anxiety disorder, unspecified; F32.9 Major depressive disorder, single episode, unspecified; E78.00 Pure hypercholesterolemia, unspecified; I89.0 Lymphedema, not elsewhere classified
CPT/HCPCS: 36415; 85379; 93971; 96372; 99284; J0696; A9270-GY

== ENCOUNTER 2020-11-21 20:07 | Emergency (ER) | payer SELFPAY ==
[2020-11-21] MEDS ORDERED: Sodium Chloride 0.9% 1000 ML 1,000 ML IV SCH (20:45)
[2020-11-21] MEDS ORDERED: Sodium Chloride 0.9% 1000 ML 1,000 ML ONE (21:35)
[2020-11-21 21:37] LABS: Absolute Neutrophil Ct (ANC) 4.25 (1.4-6.9); BASOPHIL % 0.3 % (0.0-0.4); Basophil (Absolute #) 0.02 (0-0.4); Eosinophil % 1.5 % (0.00-5.0); Eosinophil (Absolute #) 0.09 (0-0.5); Hematocrit 40.8 % (35-47); Hemoglobin 11.6 gm/dl (12.0-16.0); Lymphocyte (Absolute #) 1.09 (1.0-4.6); Lymphocytes % 17.8 % (24.0-44.0); Mean Cell Volume 84.3 fl (78-100); Mean Corpuscular Hgb Concent. 28.4 g/dl (32-36); Mean Platelet Volume 9.6 fl (7.5-11.0); Monocyte (Absolute #) 0.66 (0.0-1.3); Monocytes % 10.8 % (0.0-12.0); Neutrophil % 69.6 % (36.0-66.0); Platelet Count 327 K/mm3 (150-450); Red Blood Count 4.84 M/mm3 (4.1-5.4); Red Cell Distribution Width 17.5 % (11.5-14.0); White Blood Count 6.1 K/mm3 (4.0-10.5)
--- NOTE | 2020-11-21 21:44 | ERPHSYRPT ---
- History of Present Illness Time Seen by Provider: 11/21/20 20:45 Source: patient Exam Limitations: no limitations Patient Subjective Stated Complaint: pt states "When I was getting into the bed my leg popped." Triage Nursing Assessment: pt came into the er via ambulance; pt is axo x4; c/o fall with pain to rt knee; pt state 10/10 pain to rt knee with ambulation; pt states that she was getting into the bed and heard a pop in her rt leg; pt state she has no pain with laying or sitting; no deformity present; good cap refill; limited ROM due to pain; hypertensive Physician History: Patient is a 45-year-old female morbidly obese presents to our ED via EMS with complaints of right knee pain. Pain started approximately 2 AM this morning. Patient was getting into bed. She was swinging her left leg over into the bed while supporting herself with the right leg. In doing so patient felt a pop and a severe pain. Pain described as an ache that is localized to the anterior aspect of the right knee. Patient has difficulty walking. No other injuries reported. Symptoms are mild to moderate in intensity. No specific worsening improving factors. Patient states he is otherwise healthy. She voices no other complaints at this time. Method of Injury: twisted (Twisted onto her right knee.) Occurred: this morning Quality: constant Severity of Pain-Max: moderate Severity of Pain-Current: moderate Lower Extremities Pain: knee: right Modifying Factors: Improves With: movement, rest Associated Symptoms: none Allergies/Adverse Reactions: codeine Allergy (Verified 11/21/20 20:39) Vomiting Penicillins Allergy (Verified 11/21/20 20:39) Anaphylactic Reaction Home Medications: Levothyroxine Sodium 50 Mcg [Synthroid 50 Mcg] 50 mcg PO DAILY 07/11/18 [History] clonazePAM [Klonopin] 1 mg PO TID PRN 07/11/18 [History] Citalopram Hydrobromide 20 mg* [ceLEXa 20 MG] 20 mg PO DAILY 07/12/18 [History] Hx Tetanus, Diphtheria Vaccination/Date Given: No (unknown) Hx Influenza Vaccination/Date Given: No Hx Pneumococcal Vaccination/Date Given: No Travel Risk - International Travel Have you traveled outside of the country in past 3 weeks: No - Coronavirus Screening Are you exhibiting any of the following symptoms?: No Close contact with a COVID-19 positive Pt in past 14-21 Days: No - Vaccine Status Have you recieved a Covid-19 vaccination: No - Review of Systems Constitutional: No Symptoms, No Fever, No Chills Eyes: No Symptoms Ears, Nose, & Throat: No Symptoms Respiratory: No Symptoms, No Cough, No Dyspnea Cardiac: No Symptoms, No Chest Pain, No Edema, No Syncope Abdominal/Gastrointestinal: No Symptoms, No Abdominal Pain, No Nausea, No Vomiting, No Diarrhea Genitourinary Symptoms: No Symptoms, No Dysuria Musculoskeletal: No Symptoms, No Back Pain, No Neck Pain Skin: No Symptoms, No Rash Neurological: No Symptoms, No Dizziness, No Focal Weakness, No Sensory Changes Psychological: No Symptoms Endocrine: No Symptoms Hematologic/Lymphatic: No Symptoms Immunological/Allergic: No Symptoms All Other Systems: Reviewed and Negative - Past Medical History Pertinent Past Medical History: Yes Neurological History: No Pertinent History ENT History: No Pertinent History Cardiac History: No Pertinent History Respiratory History: Bronchitis Endocrine Medical History: No Pertinent History, Hypothyroidism Musculoskeletal History: Arthritis, Fractures GI Medical History: No Pertinent History History: No Pertinent History Psycho-Social History: Anxiety, Depression, Panic Disorder Female Reproductive Disorders: No Pertinent History Other Medical History: fx lt leg, rt ankle with 7 screws and a plate, pins to rt elbow - Past Surgical History Past Surgical History: Yes Neuro Surgical History: No Pertinent History Cardiac: No Pertinent History Respiratory: No Pertinent History Gastrointestinal: No Pertinent History Genitourinary: No Pertinent History Musculoskeletal: Orthopedic Surgery Female Surgical History: Section, Tubal Ligation Other Surgical History: R arm, R leg - Social History Smoking Status: Former smoker How long have you smoked: 16 yrs Exposure to second hand smoke: No Drug Use: none Patient Lives Alone: No - Female History Hx Now: No - Nursing Vital Signs Nursing Vital Signs: Initial Vital Signs Temperature 98.2 F 11/21/20 20:40 Pulse Rate 77 11/21/20 20:40 Respiratory Rate 20 11/21/20 20:40 Blood Pressure 156/90 11/21/20 20:40 O2 Sat by Pulse Oximetry 97 11/21/20 20:40 Pain Scale Pain Intensity [] 0 Pain Intensity 0 - Physical Exam General Appearance: no apparent distress, alert Eyes, Ears, Nose, Throat Exam: moist mucous membranes Neck Exam: non-tender, supple Cardiovascular/Respiratory Exam: chest non-tender, normal breath sounds, regular rate/rhythm, no respiratory distress Gastrointestinal/Abdominal Exam: non-tender, guarding Back Exam: normal inspection, No vertebral tenderness Hips Exam: bilateral: non-tender, normal inspection, normal range of motion, no evidence of injury Legs Exam: bilateral leg: non-tender, normal inspection, normal range of motion, no evidence of injury Knees Exam: right knee: pain, soft tissue tenderness, swelling, other (Due to the size of patient's right leg it is extremely difficult to obtain an adequate exam including a ligamentous exam of the right knee.), left knee: non-tender, normal inspection, normal range of motion, no evidence of injury Ankle Exam: bilateral ankle: non-tender, normal inspection, normal range of motion, no evidence of injury Foot Exam: bilateral foot: non-tender, normal inspection, normal range of motion, no evidence of injury Neuro/Tendon Exam: normal sensation, normal motor functions Mental Status Exam: alert, oriented x 3, cooperative Skin Exam: normal color, warm, dry SpO2 Interpretation: normal SpO2: 97 O2 Delivery: Room Air - Course Nursing assessment & vital signs reviewed: Yes - Radiology Exams Knee X-ray Interpretation: Interpreted by me (No fracture or dislocation. Knee appears to be in good alignment. Mild degenerative arthritis.) Ordered Tests: Active Orders 24 hr Category Date Time Status IV Insertion STAT Care 11/21/20 20:34 Active ARTERIAL UNILAT/LTD LOWER EXT [US] Stat Exams 11/22/20 01:20 Taken CBC W DIFF Stat Lab 11/21/20 20:34 Completed CMP Stat Lab 11/21/20 20:34 Completed Medication Summary Generic Name Dose Route Start Last Admin Trade Name Freq PRN Reason Stop Dose Admin Sodium Chloride 1,000 mls @ 100 mls/hr 11/21/20 20:45 11/21/20 21:37 Sodium Chloride 0.9% 1000 Ml IV 12/21/20 20:44 100 mls/hr .Q10H CHANO Administration Discontinued Medications Generic Name Dose Route Start Last Admin Trade Name Freq PRN Reason Stop Dose Admin Ketorolac Tromethamine 30 mg 11/22/20 01:30 Toradol 30 Mg Injection IV 11/22/20 01:31 STAT ONE Lab/Rad Data: Laboratory Result Diagrams 11/21/20 20:34 04/27/21 20:34 Laboratory Results 11/21/20 11/21/20 Range/Units 20:34 20:34 WBC 6.1 (4.0-10.5) K/mm3 RBC 4.84 (4.1-5.4) M/mm3 Hgb 11.6 L (12.0-16.0) gm/dl Hct 40.8 (35-47) % MCV 84.3 (78-100) fl MCH 24.0 L (26-32) pg MCHC 28.4 L (32-36) g/dl RDW 17.5 H (11.5-14.0) % Plt Count 327 (150-450) K/mm3 MPV 9.6 (7.5-11.0) fl Gran % 69.6 H (36.0-66.0) % Eos # (Auto) 0.09 (0-0.5) Absolute Lymphs (auto) 1.09 (1.0-4.6) Absolute Monos (auto) 0.66 (0.0-1.3) Lymphocytes % 17.8 L (24.0-44.0) % Monocytes % 10.8 (0.0-12.0) % Eosinophils % 1.5 (0.00-5.0) % Basophils % 0.3 (0.0-0.4) % Absolute Granulocytes 4.25 (1.4-6.9) Basophils # 0.02 (0-0.4) Sodium 137 (137-145) mmol/L Potassium 4.6 (3.5-5.1) mmol/L Chloride 98 (98-107) mmol/L Carbon Dioxide 35 H (22-30) mmol/L Anion Gap 8.3 (5-15) MEQ/L BUN 15 (7-17) mg/dL Creatinine 0.56 (0.52-1.04) mg/dL Estimated GFR > 60.0 ML/MIN Glucose 85 (74-106) mg/dL Calcium 9.1 (8.4-10.2) mg/dL Total Bilirubin 0.70 (0.2-1.3) mg/dL AST 33 (14-36) U/L ALT 18 (0-35) U/L Alkaline Phosphatase 95 (38-126) U/L Serum Total Protein 7.9 (6.3-8.2) g/dL Albumin 4.1 (3.5-5.0) g/dL Slides for Path Review YES - Progress Progress: improved Progress Note: Patient reassessed. Patient declined pain medication. We intended to do a CT angio of her right lower extremity to rule out arterial injury. Due to patient's size unable to obtain a reliable exam on integrity of knee ligaments. Patient's weight precluded CT scan. We then did a ultrasound of her popliteal artery which appeared to be patent with no flaps. The extremities neurovascular intact distally. X-ray of the right knee is negative for fracture dislocation. Patient referred to orthopedic clinic for follow-up. We will discharge patient home with crutches. Patient follow-up with her primary care doctor within 48 hours for reevaluation. Plan of care discussed with patient. She voices no other complaints or concerns at this time. 11/22/20 01:20 11/22/20 01:33 Counseled pt/family regarding: diagnosis, need for follow-up, rad results - Departure Departure Disposition: Home Clinical Impression: Knee sprain, Knee pain Condition: Stable Critical Care Time: No Referrals: LYLA ALANIZ [Primary Care Provider] - Additional Instructions: Discharge/Care Plan KENNY SHEA was seen on 11/22/20 in the Emergency Room. The patient was counseled regarding Diagnosis,Lab results, Imaging studies, need for follow up and when to return to the Emergency Room. Prescriptions given: Discharge Note I have spoken with the patient and/or caregivers. I have explained the patient's condition, diagnosis and treatment plan based on the information available to me at this time. I have answered the patient's and/or caregiver's questions and addressed any concerns. The patient and/or caregivers have as good understanding of the patient's diagnosis, condition and treatment plan as can be expected at this point. The vital signs have been stable. The patient's condition is stable and appropriate for discharge from the emergency department. The patient will pursue further outpatient evaluation with the primary care physician or other designated or consulting physician as outlined in the discharge instructions. The patient and/or caregivers are agreeable to this plan of care and follow-up instructions have been explained in detail. The patient and/or caregivers have received these instruction. The patient/and or caregivers are aware that any significant change in condition or worsening of symptoms should prompt an immediate return to this or the closest emergency department or call 911. Outpatient Orders: Ortho Referral Time Frame: 1 Day, Facility: [facility], Location: ORTHO CLINIC
[2020-11-21 21:48] LABS: ALBUMIN 4.1 g/dL (3.5-5.0); ALKALINE PHOSPHATASE 95 U/L (38-126); ANION GAP 8.3 MEQ/L (5-15); BLOOD UREA NITROGEN 15 mg/dL (7-17); CHLORIDE 98 mmol/L (98-107); Calcium 9.1 mg/dL (8.4-10.2); Carbon Dioxide 35 mmol/L (22-30); Creatinine 1 0.56 mg/dL (0.52-1.04); EST GLOMERULAR FILTRATION RATE > 60.0 ML/MIN; Glucose 85 mg/dL (74-106); Potassium 4.6 mmol/L (3.5-5.1); SGOT/AST 33 U/L (14-36); SGPT/ALT 18 U/L (0-35); SODIUM 137 mmol/L (137-145); Total Protein 7.9 g/dL (6.3-8.2)
[2020-11-21 22:50] LABS: Slide Review 1 YES
[2020-11-22] MEDS ORDERED: TORAdol 30 mg Injection IV ONE (01:30)
[2020-11-22 01:31] VITALS: O2SAT 97
[2020-11-22] MEDS ORDERED: TORAdol 30 mg Injection ONE (01:34)
[2020-11-22 01:51] VITALS: BP 144/96; PULSE 72
--- NOTE | 2020-11-22 20:48 | XRAY ---
Exam: Limited right lower extremity Doppler arterial exam from 11/22/2020. Comparison: None. Indication: 45-year-old female with right leg pain. Findings: The optometric technologist left a note that the exam is limited due to the patient's morbid obesity (weighs almost 500 pounds). Sharma scale images, color blood flow images, and Doppler tracings were obtained through the major right lower extremity arteries. Unremarkable color blood flow was seen within customer service representative teller sections of the right common femoral artery, proximal, mid, and distal superficial femoral artery, popliteal artery, distal posterior tibial artery, and dorsalis pedis artery. Doppler waveforms were triphasic within the common femoral artery, biphasic within the superficial femoral artery and popliteal artery, and triphasic within the distal posterior tibial artery and dorsalis pedis artery. Peak systolic flow velocities in centimeters per second measured 146 within the common femoral artery, 146 within the proximal superficial femoral artery, 140 within the mid superficial femoral artery, 133 within the popliteal artery, 101 within the dorsalis pedis artery, and 125 within the distal posterior tibial artery. Impression: 1. The exam is limited due to the patient's morbid obesity. However, customer service representative teller sections of the major right lower extremity arteries are visualized with color-flow imaging (i.e. patent) and demonstrate either biphasic or triphasic waveforms.,
--- NOTE | 2020-11-22 20:49 | XRAY ---
Exam: Portable AP and lateral images of the right knee from 11/21/2020. Comparison: None. Indication: Right leg pain. Findings: The lateral image is mildly compromised due to the patient's large size/morbid obesity. I see no fracture or dislocation. Assessment of possible suprapatellar joint effusion is limited due to the patient's morbid obesity. There is mild narrowing of the medial compartment of the right knee joint space. Minimal osteophyte formation is seen at the lateral margin of the right knee joint. No other focal bone lesion is seen. An orthopedic metallic plate and screws are partially seen within the distal right fibula. Impression: 1. No acute right knee fracture or dislocation is seen. 2. Mild osteoarthritic changes are seen about the femoral tibial joint of the right knee.
== END 2020-11-22 01:44 | disposition home or self-care (01) ==
LOC: ED 20:07
DX: S83.91XA Sprain of unspecified site of right knee, initial encounter (principal); X58.XXXA Exposure to other specified factors, initial encounter; Y93.89 Activity, other specified; Y92.89 Other specified places as the place of occurrence of the external cause; M25.561 Pain in right knee; X50.1XXA Overexertion from prolonged static or awkward postures, initial encounter; Y93.9 Activity, unspecified
CPT/HCPCS: 36000; 36415; 73560; 80053; 85025; 93926; 96374; 99284; J1885

== ENCOUNTER 2023-08-06 14:13 | Emergency (ER) | payer OTHER ==
[2023-08-06] MEDS ORDERED: Ativan 2 MG/1 ML VIAL IV ONE (14:29)
[2023-08-06] MEDS ORDERED: Sodium Chloride 0.9% 1000 ML 1,000 ML IV SCH (14:30)
[2023-08-06 14:33] VITALS: BP 176/86; PULSE 64; RESP 18; TEMP 97; O2SAT 93
[2023-08-06] MEDS ORDERED: Ativan 2 MG/1 ML VIAL ONE (14:35)
--- NOTE | 2023-08-06 14:48 | XRAY ---
Indication: Short of breath. Fatigue. Comparison: July 12, 2018 Portable chest now demonstrates cardiomegaly. Lungs demonstrates new right infrahilar infiltrate/atelectasis with stable incidental right upper lobe calcified granuloma. Bony thorax intact.
[2023-08-06 14:54] LABS: Absolute Neutrophil Ct (ANC) 4.37 x10^3/uL (1.4-6.9); BASOPHIL % 0.2 % (0.0-0.4); Basophil (Absolute #) 0.01 x10^3/uL (0-0.4); Eosinophil % 0.2 % (0.00-5.0); Eosinophil (Absolute #) 0.01 x10^3/uL (0-0.5); Hematocrit 39.8 % (35-47); Hemoglobin 11.9 g/dL (12.0-16.0); IMMATURE GRAN # 0.02 x10^3u/L (0.00-0.03); IMMATURE GRAN % 0.4 % (0.00-0.4); Lymphocyte (Absolute #) 0.79 x10^3/uL (1.0-4.6); Lymphocytes % 14.3 % (24.0-44.0); Mean Cell Volume 88.4 fL (78-100); Mean Corpuscular Hemoglobin 26.4 pg (26-32); Mean Corpuscular Hgb Concent. 29.9 g/dL (32-36); Mean Platelet Volume 9.4 fL (7.5-11.0); Monocyte (Absolute #) 0.31 x10^3/uL (0.0-1.3); Monocytes % 5.6 % (0.0-12.0); Neutrophil % 79.3 % (36.0-66.0); Platelet Count 241 x10^3/uL (150-450); Red Cell Distribution Width 16.3 % (11.5-14.0); White Blood Count 5.5 x10^3/uL (4.0-10.5)
[2023-08-06] MEDS ORDERED: Ativan 1 MG PO ONE (15:13)
[2023-08-06 15:19] LABS: Group A Strep NOT DETECTED (NEGATIVE)
[2023-08-06] MEDS ORDERED: Ativan 1 MG ONE (15:19)
[2023-08-06 15:24] LABS: ALBUMIN 4.2 g/dL (3.5-5.0); ANION GAP 10.6 MEQ/L (5-15); BILIRUBIN,TOTAL 0.6 mg/dL (0.2-1.3); Creatinine 1 0.62 mg/dL (0.52-1.04); EST GLOMERULAR FILTRATION RATE 111.9 ML/MIN; MAGNESIUM 1.8 mg/dL (1.6-2.3); Potassium 3.9 mmol/L (3.5-5.1); Total Protein 8.1 g/dL (6.3-8.2)
[2023-08-06 15:30] LABS: INFLUENZA A NEGATIVE (NEGATIVE); RESPIRATORY SYNCTIAL VIRUS NEGATIVE (NEGATIVE); SARS-CoV-2 Xpert Express NEGATIVE (NEGATIVE)
--- NOTE | 2023-08-06 15:32 | ERPHSYRPT ---
- History of Present Illness Time Seen by Provider: 08/06/23 14:30 Source: patient Exam Limitations: no limitations Patient Subjective Stated Complaint: Cough Triage Nursing Assessment: Patient brought back to ED per w/c and transferred to bed per self. Patient A+O X 3. Patient's skin pink, warm and dry. Patient complains of cough for the past two days and diarrhea that started today. Patient denies pain or discomfort. Lungs noted to be wheezing rupert througout. Patient wears home O2 at 2 liters at home. Patient states her cough is productive with thick green sputum. Physician History: Patient is a 47-year-old white female with COPD who is on O2 at home at night who presents with a cough for 2 days and some diarrhea. She took some of her mother's prednisone to try to help her breathing and now cannot sleep.. She refuses IV needlesticks and to request Ativan p.o. Timing/Duration: yesterday Severity: moderate Modifying Factors: Improves With: medication Associated Symptoms: shortness of breath, cough Allergies/Adverse Reactions: codeine Allergy (Verified 08/06/23 14:16) Vomiting Penicillins Allergy (Verified 08/06/23 14:16) Anaphylactic Reaction Home Medications: Levothyroxine Sodium 50 Mcg [Synthroid 50 Mcg] 50 mcg PO DAILY 07/11/18 [History] clonazePAM [Klonopin] 1 mg PO TID PRN 07/11/18 [History] Citalopram Hydrobromide 20 mg* [ceLEXa 20 MG] 20 mg PO DAILY 07/12/18 [History] Hx Tetanus, Diphtheria Vaccination/Date Given: No (unknown) Hx Influenza Vaccination/Date Given: No Hx Pneumococcal Vaccination/Date Given: No Immunizations Up to Date: Yes Travel Risk - International Travel Have you traveled outside of the country in past 3 weeks: No - Coronavirus Screening Are you exhibiting any of the following symptoms?: No Close contact with a COVID-19 positive Pt in past 14-21 Days: No - Vaccine Status Have you recieved a Covid-19 vaccination: Yes Coin Counter And Wrapper: Unknown - Vaccination Dates Dates if Unknown: na - Review of Systems Constitutional: No Fever, No Chills Eyes: No Symptoms Ears, Nose, & Throat: No Symptoms Respiratory: No Cough, No Dyspnea Cardiac: No Chest Pain, No Edema, No Syncope Abdominal/Gastrointestinal: No Abdominal Pain, No Nausea, No Vomiting, No Diarrhea Genitourinary Symptoms: No Dysuria Musculoskeletal: No Back Pain, No Neck Pain Skin: No Rash Neurological: No Dizziness, No Focal Weakness, No Sensory Changes Psychological: No Symptoms Endocrine: No Symptoms All Other Systems: Reviewed and Negative - Past Medical History Pertinent Past Medical History: Yes Neurological History: No Pertinent History ENT History: No Pertinent History Cardiac History: No Pertinent History Respiratory History: Bronchitis Endocrine Medical History: No Pertinent History, Hypothyroidism Musculoskeletal History: Arthritis, Fractures GI Medical History: No Pertinent History History: No Pertinent History Psycho-Social History: Anxiety, Depression, Panic Disorder Female Reproductive Disorders: No Pertinent History Other Medical History: fx lt leg, rt ankle with 7 screws and a plate, pins to rt elbow - Past Surgical History Past Surgical History: Yes Neuro Surgical History: No Pertinent History Cardiac: No Pertinent History Respiratory: No Pertinent History Gastrointestinal: No Pertinent History Genitourinary: No Pertinent History Musculoskeletal: Orthopedic Surgery Female Surgical History: Section, Tubal Ligation Other Surgical History: R arm, R leg - Social History Smoking Status: Former smoker How long have you smoked: 16 yrs Exposure to second hand smoke: No Drug Use: none Patient Lives Alone: No - Female History Hx Last Menstrual Period: 2 months ago Hx Now: No - Nursing Vital Signs Nursing Vital Signs: Initial Vital Signs Temperature 97.0 F 08/06/23 14:17 Pulse Rate 64 08/06/23 14:17 Respiratory Rate 20 08/06/23 14:17 Blood Pressure 176/86 08/06/23 14:17 O2 Sat by Pulse Oximetry 93 L 08/06/23 14:17 Pain Scale Pain Intensity 0 - Physical Exam General Appearance: mild distress, alert Eye Exam: PERRL/EOMI, eyes nml inspection Ears, Nose, Throat Exam: normal ENT inspection, TMs normal, pharynx normal, moist mucous membranes Neck Exam: normal inspection, non-tender, supple, full range of motion Respiratory Exam: normal breath sounds, lungs clear, No respiratory distress Cardiovascular Exam: regular rate/rhythm, normal heart sounds, normal peripheral pulses Gastrointestinal/Abdomen Exam: soft, normal bowel sounds, No tenderness, No mass Back Exam: normal inspection, normal range of motion, No CVA tenderness, No vertebral tenderness Extremity Exam: normal inspection, normal range of motion, pelvis stable Neurologic Exam: alert, oriented x 3, cooperative, normal mood/affect, nml cerebellar function, nml station & gait, sensation nml, No motor deficits Skin Exam: normal color, warm, dry, No rash Lymphatic Exam: No adenopathy SpO2: 93 - Course Nursing assessment & vital signs reviewed: Yes EKG Interpreted by Me: RATE (61), Sinus Rhythm, NORMAL AXIS, NORMAL INTERVALS, NORMAL ST-T - Radiology Exams Chest X-ray Interpretation: Reviewed by me Ordered Tests: Active Orders 24 hr Category Date Time Status EKG-ER Only STAT Care 08/06/23 14:24 Active IV Insertion STAT Care 08/06/23 14:24 Active CHEST 1 VIEW (PORTABLE) Stat Exams 08/06/23 14:25 Completed CBC W DIFF Stat Lab 08/06/23 14:48 Completed CMP Stat Lab 08/06/23 14:48 Completed D-DIMER QUANTITATIVE Stat Lab 08/06/23 14:48 Completed Lactic Acid Stat Lab 08/06/23 14:45 Completed MAGNESIUM Stat Lab 08/06/23 14:48 Completed NT PRO BNPII Stat Lab 08/06/23 14:48 Completed TROPONIN Q4H Lab 08/06/23 14:48 Completed TROPONIN Q4H Lab 08/06/23 18:30 Ordered TROPONIN Q4H Lab 08/06/23 22:30 Ordered UA W/RFX UR CULTURE Stat Lab 08/06/23 15:40 Ordered Medication Summary Generic Name Dose Route Start Last Admin Trade Name Freq PRN Reason Stop Dose Admin Sodium Chloride 1,000 mls @ 100 mls/hr 08/06/23 14:30 08/06/23 14:47 Sodium Chloride 0.9% 1000 Ml IV 09/05/23 14:29 Not Given .Q10H CHANO Discontinued Medications Generic Name Dose Route Start Last Admin Trade Name Freq PRN Reason Stop Dose Admin Lorazepam 1 mg 08/06/23 14:29 08/06/23 14:37 Lorazepam 2 Mg/1 Ml 2 Mg Vial IV 08/06/23 14:30 Not Given STAT ONE Lorazepam Confirm 08/06/23 14:35 Lorazepam 2 Mg/1 Ml 2 Mg Vial Administered 08/06/23 14:36 Dose 2 mg .ROUTE .[facility]-MED ONE Lorazepam 1 mg 08/06/23 15:13 01/10/24 15:20 Lorazepam 1 Mg Tablet PO 08/06/23 15:14 1 mg STAT ONE Administration Lorazepam Confirm 08/06/23 15:19 Lorazepam 1 Mg Tablet Administered 08/06/23 15:20 Dose 1 mg .ROUTE .[facility] [place]-MED ONE Lab/Rad Data: Laboratory Result Diagrams 08/06/23 14:48 08/06/23 14:48 Laboratory Results 08/06/23 08/06/23 08/06/23 Range/Units 14:50 14:48 14:48 WBC (4.0-10.5) x10^3/uL RBC (4.1-5.4) x10^6/uL Hgb (12.0-16.0) g/dL Hct (35-47) % MCV (78-100) fL MCH (26-32) pg MCHC (32-36) g/dL RDW (11.5-14.0) % Plt Count (150-450) x10^3/uL MPV (7.5-11.0) fL Gran % (36.0-66.0) % Immature Gran % (Auto) (0.00-0.4) % Nucleat RBC Rel Count (0.00-0.1) % Eos # (Auto) (0-0.5) x10^3/uL Immature Gran # (Auto) (0.00-0.03) x10^3u/L Absolute Lymphs (auto) (1.0-4.6) x10^3/uL Absolute Monos (auto) (0.0-1.3) x10^3/uL Absolute Nucleated RBC (0.00-0.01) x10^3u/L Lymphocytes % (24.0-44.0) % Monocytes % (0.0-12.0) % Eosinophils % (0.00-5.0) % Basophils % (0.0-0.4) % Absolute Granulocytes (1.4-6.9) x10^3/uL Basophils # (0-0.4) x10^3/uL D-Dimer 0.57 H (0.0-0.50) mg/L Sodium (137-145) mmol/L Potassium (3.5-5.1) mmol/L Chloride (98-107) mmol/L Carbon Dioxide (22-30) mmol/L Anion Gap (5-15) MEQ/L BUN (7-17) mg/dL Creatinine (0.52-1.04) mg/dL Estimated GFR ML/MIN Glucose (74-106) mg/dL Lactic Acid (0.4-2.0) Calcium (8.4-10.2) mg/dL Magnesium (1.6-2.3) mg/dL Total Bilirubin (0.2-1.3) mg/dL AST (14-36) U/L ALT (0-35) U/L Alkaline Phosphatase (38-126) U/L Troponin I 0.014 (0.000-0.034) ng/mL NT-Pro-B Natriuret Pep (<300) pg/mL Serum Total Protein (6.3-8.2) g/dL Albumin (3.5-5.0) g/dL Influenza Type A Ag NEGATIVE (NEGATIVE) Influenza Type B Ag POSITIVE (NEGATIVE) RSV (PCR) NEGATIVE (NEGATIVE) SARS-CoV-2 (PCR) NEGATIVE (NEGATIVE) Group A Strep Antibody NOT DETECTED (NEGATIVE) 08/06/23 08/06/23 08/06/23 Range/Units 14:48 14:48 14:45 WBC 5.5 (4.0-10.5) x10^3/uL RBC 4.50 (4.1-5.4) x10^6/uL Hgb 11.9 L (12.0-16.0) g/dL Hct 39.8 (35-47) % MCV 88.4 (78-100) fL MCH 26.4 (26-32) pg MCHC 29.9 L (32-36) g/dL RDW 16.3 H (11.5-14.0) % Plt Count 241 (150-450) x10^3/uL MPV 9.4 (7.5-11.0) fL Gran % 79.3 H (36.0-66.0) % Immature Gran % (Auto) 0.4 (0.00-0.4) % Nucleat RBC Rel Count 0.0 (0.00-0.1) % Eos # (Auto) 0.01 (0-0.5) x10^3/uL Immature Gran # (Auto) 0.02 (0.00-0.03) x10^3u/L Absolute Lymphs (auto) 0.79 L (1.0-4.6) x10^3/uL Absolute Monos (auto) 0.31 (0.0-1.3) x10^3/uL Absolute Nucleated RBC 0.00 (0.00-0.01) x10^3u/L Lymphocytes % 14.3 L (24.0-44.0) % Monocytes % 5.6 (0.0-12.0) % Eosinophils % 0.2 (0.00-5.0) % Basophils % 0.2 (0.0-0.4) % Absolute Granulocytes 4.37 (1.4-6.9) x10^3/uL Basophils # 0.01 (0-0.4) x10^3/uL D-Dimer (0.0-0.50) mg/L Sodium 136 L (137-145) mmol/L Potassium 3.9 (3.5-5.1) mmol/L Chloride 99 (98-107) mmol/L Carbon Dioxide 30 (22-30) mmol/L Anion Gap 10.6 (5-15) MEQ/L BUN 12 (7-17) mg/dL Creatinine 0.62 (0.52-1.04) mg/dL Estimated GFR 111.9 ML/MIN Glucose 115 H (74-106) mg/dL Lactic Acid 1.2 (0.4-2.0) Calcium 9.0 (8.4-10.2) mg/dL Magnesium 1.8 (1.6-2.3) mg/dL Total Bilirubin 0.60 (0.2-1.3) mg/dL AST 33 (14-36) U/L ALT 20 (0-35) U/L Alkaline Phosphatase 95 (38-126) U/L Troponin I (0.000-0.034) ng/mL NT-Pro-B Natriuret Pep 571 (<300) pg/mL Serum Total Protein 8.1 (6.3-8.2) g/dL Albumin 4.2 (3.5-5.0) g/dL Influenza Type A Ag (NEGATIVE) Influenza Type B Ag (NEGATIVE) RSV (PCR) (NEGATIVE) SARS-CoV-2 (PCR) (NEGATIVE) Group A Strep Antibody (NEGATIVE) - Progress Progress: improved Medical Desision Making - Diagnostic Testing Diagnostic test were ordered, analyzed, and reviewed by me: Yes Radiological Interpretation: Reviewed by me - Departure Departure Disposition: Home Clinical Impression: Influenza B Condition: Stable Critical Care Time: No Referrals: KIRBY BEY FNP [Primary Care Provider] - Follow up/PCP as directed Instructions: Flu, Adult (DC) Prescriptions: Oseltamivir 75 mg [Tamiflu 75MG Capsule] 75 mg PO BID #10 cap
[2023-08-06 15:45] LABS: INFLUENZA B POSITIVE (NEGATIVE)
[2023-08-06 16:25] LABS: Appearance Clear (Clear); Bacteria Few /HPF (None Seen); Bilirubin Negative (Negative); Blood Negative (Negative); Epithelial Cells Rare /HPF (None Seen); Glucose, Urine Negative (Negative); Hyaline Casts NONE SEEN /LPF (0-2); Ketones Negative (Negative); Leukocyte Esterase Negative (Negative); Nitrite Negative (Negative); Protein,Urine Dip 30 (Negative); WBC 0-2 /HPF (0-5)
[2023-08-06 16:26] LABS: ADD URINE CULTURE? NO (NO)
== END 2023-08-06 16:12 | disposition home or self-care (01) ==
LOC: ED 14:13
DX: J10.1 Influenza due to other identified influenza virus with other respiratory manifestations (principal); R05.1 Acute cough; R19.7 Diarrhea, unspecified; Z79.899 Other long term (current) drug therapy
CPT/HCPCS: 0241U; 36415; 71045; 80053; 81001; 83605; 83735; 83880; 84484; 85025; 85379; 87651; 93005; 96374; 99283; J2060; A9270-GY

== ENCOUNTER 2024-02-23 23:48 | Emergency (ER) | payer OTHER ==
[2024-02-24 00:04] VITALS: TEMP 98
[2024-02-24] MEDS ORDERED: PERCOCET TABLET 5/325MG ONE (00:54)
[2024-02-24] MEDS: PERCOCET TABLET 5/325MG PO ONE (00:55)
--- NOTE | 2024-02-24 01:02 | ERPHSYRPT ---
- History of Present Illness Time Seen by Provider: 02/23/24 23:52 Source: patient Exam Limitations: no limitations Patient Subjective Stated Complaint: "I was getting out of the shower and I don't know if the floor was wet or what but I fell and hurt my ankle". Triage Nursing Assessment: Pt presents to ER with complaints of left ankle injury that occurred from a fall in the bathroom about an hour [employer] OUTSIDE. Pt has tenderness and swelling to inner foot and ankle. Pulses present. Limited ROM. Pt denies LOC or further injuries or LOC. Pt is obese and had hx of right ankle fx and surgery. Pt respiration are slightly labored. Stand by assist to bed from wheelchair with impaired gait. Physician History: 48 years old morbidly obese female presented in the ER after she slipped in a wet bathroom, twisted her left ankle almost an hour prior to arrival. Complaining of moderate to severe sharp pain in the left medial ankle, making it difficult weightbearing. Swelling on the medial side of the ankle. No injury anywhere else. Partial relief with ice placement. Allergies/Adverse Reactions: codeine Allergy (Verified 02/24/24 00:04) Vomiting Penicillins Allergy (Verified 02/24/24 00:04) Anaphylactic Reaction Home Medications: Levothyroxine Sodium 50 Mcg [Synthroid 50 Mcg] 100 mcg PO DAILY 07/11/18 [History] Citalopram Hydrobromide 20 mg* [ceLEXa 20 MG] 20 mg PO DAILY 07/12/18 [History] Hydrochlorothiazide 25 mg [hydroDIURIL 25 MG] 25 mg PO DAILY 02/24/24 [History] Hydroxyzine HCl 25 mg [Atarax 25 mg] 25 mg PO TID PRN 02/24/24 [History] Hx Tetanus, Diphtheria Vaccination/Date Given: No (unknown) Hx Influenza Vaccination/Date Given: No Hx Pneumococcal Vaccination/Date Given: No Immunizations Up to Date: No Travel Risk - International Travel Have you traveled outside of the country in past 3 weeks: No - Emerging Infectious Disease Are you exhibiting symptoms associated with any current EIDs: No - Review of Systems Constitutional: No Symptoms Ears, Nose, & Throat: No Symptoms Respiratory: No Symptoms Cardiac: No Symptoms Abdominal/Gastrointestinal: No Symptoms Musculoskeletal: Injury, Joint Pain, Joint Swelling Skin: No Symptoms Neurological: No Symptoms Endocrine: No Symptoms Hematologic/Lymphatic: No Symptoms - Past Medical History Pertinent Past Medical History: Yes Neurological History: No Pertinent History ENT History: No Pertinent History Cardiac History: No Pertinent History Respiratory History: Bronchitis Endocrine Medical History: No Pertinent History, Hypothyroidism Musculoskeletal History: Arthritis, Fractures GI Medical History: No Pertinent History History: No Pertinent History Psycho-Social History: Anxiety, Depression, Panic Disorder Female Reproductive Disorders: No Pertinent History Other Medical History: fx lt leg, rt ankle with 7 screws and a plate, pins to rt elbow, cellulitis - Past Surgical History Past Surgical History: Yes Neuro Surgical History: No Pertinent History Cardiac: No Pertinent History Respiratory: No Pertinent History Gastrointestinal: No Pertinent History Genitourinary: No Pertinent History Musculoskeletal: Orthopedic Surgery Female Surgical History: Section, Tubal Ligation Other Surgical History: R arm, R leg - Female History Hx Last Menstrual Period: 10/27/23 Hx Now: (unkn) - Social History Smoking Status: Former smoker How long have you smoked: 16 yrs Exposure to second hand smoke: No Drug Use: none Patient Lives Alone: No - Social Determinants of Health Will the patient participate in the screening: Yes Do you worry about a steady place to live?: No Do you have any problems with any of the following?: No known problems In the past 12 months,have you had to go without utilities?: No Transportation Issues: No Has anyone in your support network made you feel unsafe?: No Have you or anyone in your house had to go without enough: No - Nursing Vital Signs Nursing Vital Signs: Initial Vital Signs Temperature 98 F 02/23/24 23:56 Pulse Rate 79 02/23/24 23:56 Respiratory Rate 20 02/23/24 23:56 Blood Pressure 161/85 02/23/24 23:56 O2 Sat by Pulse Oximetry 91 L 02/23/24 23:56 Pain Scale Pain Intensity 9 - Physical Exam General Appearance: no apparent distress Neck Exam: normal inspection, full range of motion Cardiovascular/Respiratory Exam: normal breath sounds, regular rate/rhythm Legs Exam: bilateral leg: non-tender, normal range of motion, other Ankle Exam: right ankle: non-tender, normal inspection, normal range of motion, left ankle: bone tenderness (Malleolus medial), limited range of motion, soft tissue tenderness, swelling Foot Exam: bilateral foot: non-tender, normal inspection, normal range of motion, no evidence of injury Neuro/Tendon Exam: normal sensation, normal motor functions, normal tendon functions Mental Status Exam: alert, oriented x 3, cooperative Skin Exam: normal color SpO2 Interpretation: normal SpO2: 91 O2 Delivery: Room Air Ordered Tests: Active Orders 24 hr Category Date Time Status ANKLE (3 VIEWS) Stat Exams 02/24/24 00:20 Taken Medication Summary Discontinued Medications Generic Name Dose Route Start Last Admin Trade Name oRber PRN Reason Stop Dose Admin Oxycodone/Acetaminophen 2 tab 02/24/24 00:20 Oxycodone Hcl/Apap 5 Mg/325 Mg Tablet PO 02/24/24 00:21 STAT ONE - Progress Progress: pain not gone completely Progress Note: 02/24/24 01:08 48-year-old is evaluated in the ER for left ankle pain after she twisted. Has tenderness medial malleoli are area. Minimal swelling. Distal neurovascular intact. X-rays are negative for fracture dislocation reviewed by me, official report is pending. She is given Percocet for symptomatic relief, reevaluation feeling better. I believe patient has a ankle sprain, recommended long walking boot which patient does not want. Will place in Airc[employer], crutches and weightbearing as tolerated. Outpatient orthopedic follow-up recommended. Counseled pt/family regarding: diagnosis, need for follow-up, rad results Medical Desision Making - Diagnostic Testing Diagnostic test were ordered, analyzed, and reviewed by me: Yes Radiological Interpretation: Interpreted by me, Reviewed by me - Risk of complications The pt has a mod risk of morbidity or mortality based on: Need for prescription drug management - Departure Departure Disposition: Home Clinical Impression: Ankle sprain Condition: Stable Critical Care Time: No Referrals: KIRBY BEY FNP [Primary Care Provider] - Follow up/PCP as directed Instructions: Ankle Sprain ED Additional Instructions: Intermittent ice application. Take Tylenol/ibuprofen as needed. Follow-up with orthopedics for reevaluation. Return to ER for intractable pain/swelling, difficulty ambulation etc. Prescriptions: Ibuprofen 600 mg PO Q6HPRN PRN 10 Days #20 tablet PRN Reason: Pain
[2024-02-24 01:33] VITALS: BP 114/72; PULSE 74; RESP 16; O2SAT 90
--- NOTE | 2024-02-24 08:55 | XRAY ---
Indication: Pain following fall. Comparison: None 3 view left ankle demonstrates mild talotibial degenerative changes, small posterior/plantar heel spurs, and lateral soft tissue swelling. No other bony, articular, or soft tissue abnormalities.
== END 2024-02-24 01:46 | disposition home or self-care (01) ==
LOC: ED 23:48
DX: S93.402A Sprain of unspecified ligament of left ankle, initial encounter (principal); W18.2XXA Fall in (into) shower or empty bathtub, initial encounter; Y93.E1 Activity, personal bathing and showering; Y92.002 Bathroom of unspecified non-institutional (private) residence as the place of occurrence of the external cause; Z79.899 Other long term (current) drug therapy
CPT/HCPCS: 73610; 99283; A9270-GY

== ENCOUNTER 2024-06-03 01:47 | Emergency (ER) | payer OTHER ==
[2024-06-03 02:10] VITALS: RESP 24; TEMP 98.2
[2024-06-03] MEDS ORDERED: KEFLEX 500 MG ONE (02:10)
--- NOTE | 2024-06-03 02:14 | ERPHSYRPT ---
- History of Present Illness Time Seen by Provider: 06/03/24 02:10 Source: patient Physician History: 48-year-old female presents to emergency department for evaluation of a draining ulcer on the lateral side of her right leg. The area appears to be a reoccurrence of the venous stasis ulcer that was previously present but healed. The drainage is clear. Patient worried about infection. She has no systemic manifestations at this time of an infection. However the area is erythematous and warm. No lymphangitis. No active pain. Patient declined pain medication. Patient otherwise feels well. She voices no other complaints or concerns at this time. Portions of this note were created with voice recognition technology. There may be grammatical, spelling, punctuation or sound alike errors Timing/Duration: day(s) Severity: mild Modifying Factors: Improves With: nothing Associated Symptoms: denies symptoms Allergies/Adverse Reactions: Penicillins Allergy (Verified 06/03/24 01:56) Anaphylactic Reaction codeine Adverse Reaction (Verified 06/03/24 01:56) Vomiting Home Medications: Levothyroxine Sodium 50 Mcg [Synthroid 50 Mcg] 100 mcg PO DAILY 07/11/18 [History] Citalopram Hydrobromide 20 mg* [ceLEXa 20 MG] 20 mg PO DAILY 07/12/18 [History] Hydrochlorothiazide 25 mg [hydroDIURIL 25 MG] 25 mg PO DAILY 02/24/24 [History] Hydroxyzine HCl 25 mg [Atarax 25 mg] 25 mg PO TID PRN 02/24/24 [History] Hx Tetanus, Diphtheria Vaccination/Date Given: No (unknown) Hx Influenza Vaccination/Date Given: No Hx Pneumococcal Vaccination/Date Given: No Travel Risk - Emerging Infectious Disease Are you exhibiting symptoms associated with any current EIDs: No - Review of Systems Constitutional: No Symptoms, No Fever, No Chills Eyes: No Symptoms Ears, Nose, & Throat: No Symptoms Respiratory: No Symptoms, No Cough, No Dyspnea Cardiac: No Symptoms, No Chest Pain, No Edema, No Syncope Abdominal/Gastrointestinal: No Symptoms, No Abdominal Pain, No Nausea, No Vomiting, No Diarrhea Genitourinary Symptoms: No Symptoms, No Dysuria Musculoskeletal: No Symptoms, No Back Pain, No Neck Pain Skin: No Symptoms, No Rash Neurological: No Symptoms, No Dizziness, No Focal Weakness, No Sensory Changes Psychological: No Symptoms Endocrine: No Symptoms Hematologic/Lymphatic: No Symptoms Immunological/Allergic: No Symptoms All Other Systems: Reviewed and Negative - Past Medical History Pertinent Past Medical History: Yes Neurological History: No Pertinent History ENT History: No Pertinent History Cardiac History: No Pertinent History Respiratory History: Bronchitis Endocrine Medical History: No Pertinent History, Hypothyroidism Musculoskeletal History: Arthritis, Fractures GI Medical History: No Pertinent History History: No Pertinent History Psycho-Social History: Anxiety, Depression, Panic Disorder Female Reproductive Disorders: No Pertinent History Other Medical History: fx lt leg, rt ankle with 7 screws and a plate, pins to rt elbow, cellulitis - Past Surgical History Past Surgical History: Yes Neuro Surgical History: No Pertinent History Cardiac: No Pertinent History Respiratory: No Pertinent History Gastrointestinal: No Pertinent History Genitourinary: No Pertinent History Musculoskeletal: Orthopedic Surgery Female Surgical History: Section, Tubal Ligation Other Surgical History: R arm, R leg - Female History Hx Last Menstrual Period: 10/27/23 - Social History Smoking Status: Former smoker How long have you smoked: 16 yrs Exposure to second hand smoke: No Drug Use: none Patient Lives Alone: No - Social Determinants of Health Will the patient participate in the screening: Yes Do you worry about a steady place to live?: No In the past 12 months,have you had to go without utilities?: No Transportation Issues: No Has anyone in your support network made you feel unsafe?: No Have you or anyone in your house had to go without enough: No - Physical Exam General Appearance: no apparent distress, alert Eye Exam: PERRL/EOMI, eyes nml inspection Ears, Nose, Throat Exam: normal ENT inspection, TMs normal, pharynx normal, moist mucous membranes Neck Exam: normal inspection, non-tender, supple, full range of motion Respiratory Exam: normal breath sounds, lungs clear, airway intact, No respiratory distress Cardiovascular Exam: regular rate/rhythm, normal heart sounds, normal peripheral pulses Gastrointestinal/Abdomen Exam: soft, normal bowel sounds, No tenderness, No mass Back Exam: normal inspection, normal range of motion, No CVA tenderness, No vertebral tenderness Extremity Exam: normal inspection, normal range of motion, pelvis stable Neurologic Exam: alert, oriented x 3, cooperative, normal mood/affect, sensation nml, No motor deficits Skin Exam: normal color, warm, dry, other (There is a 0.5 x 0.5 cm well- demarcated draining ulcer. The ulcer is draining clear fluid. The adjacent area is red and erythematous. Slight heat production. No lymphangitis. The involved extremities neurovascular tact distally compartments are soft cap refill less than 2 seconds. ), No rash Lymphatic Exam: No adenopathy SpO2 Interpretation: normal O2 Delivery: Room Air - Course Nursing assessment & vital signs reviewed: Yes - Progress Progress: improved Progress Note: 48-year-old female presents to emergency department for evaluation of a draining sinus/ulcer lateral aspect of right leg. The ulcer appears to be a forming venous stasis ulcer. It appears to be a early infection at the adjacent soft tissue. Patient received an oral dose of Keflex that she has had Keflex in the past to treat a skin infection. A prescription for Keflex for the patient's pharmacy. Patient agrees to follow-up with her primary care doctor within 48 hours for reevaluation. No indication for further workup at this time. She otherwise feels well. Portions of this note were created with voice recognition technology. There may be grammatical, spelling, punctuation or sound alike errors Complexity of problem addressed is moderate acute complicated no critical care time. Complex of data reviewed and analyzed is none. No specialized testing ordered. Diagnosis made based on history and physical exam. Risk of complication and or risk of morbidity/mortality of patient management is low. Vital stable. Time spent to discharge patient is approximately 15 minutes. Plan of care established for shared decision making. No social determinants of health present impede follow-up. Dictation disclaimer 06/03/24 02:14 Counseled pt/family regarding: diagnosis, need for follow-up, rad results - Departure Departure Disposition: Home Clinical Impression: Leg ulcer Condition: Stable Critical Care Time: No Referrals: KIRBY BEY FNP [Primary Care Provider] - Follow up/PCP as directed Additional Instructions: Discharge/Care Plan KENNY SHEA was seen on 06/03/24 in the Emergency Room. The patient was counseled regarding Diagnosis,Lab results, Imaging studies, need for follow up and when to return to the Emergency Room. Prescriptions given: Discharge Note I have spoken with the patient and/or caregivers. I have explained the patient's condition, diagnosis and treatment plan based on the information available to me at this time. I have answered the patient's and/or caregiver's questions and addressed any concerns. The patient and/or caregivers have as good understanding of the patient's diagnosis, condition and treatment plan as can be expected at this point. The vital signs have been stable. The patient's condition is stable and appropriate for discharge from the emergency department. The patient will pursue further outpatient evaluation with the primary care physician or other designated or consulting physician as outlined in the discharge instructions. The patient and/or caregivers are agreeable to this plan of care and follow-up instructions have been explained in detail. The patient and/or caregivers have received these instruction. The patient/and or caregivers are aware that any significant change in condition or worsening of symptoms should prompt an immediate return to this or the closest emergency department or call 911. Prescriptions: Cephalexin Mh 500 mg [Keflex 500 mg] 500 mg PO TID #21 cap
[2024-06-03] MEDS: KEFLEX 500 MG PO ONE (02:15)
[2024-06-03 02:49] VITALS: BP 134/67; PULSE 75
[2024-06-03 03:16] VITALS: O2SAT 92
== END 2024-06-03 03:15 | disposition home or self-care (01) ==
LOC: ED 01:47
DX: L97.819 Non-pressure chronic ulcer of other part of right lower leg with unspecified severity (principal); Z79.899 Other long term (current) drug therapy
CPT/HCPCS: 99282; A9270-GY

== ENCOUNTER 2024-12-08 01:07 | Emergency (ER) | payer OTHER ==
[2024-12-08 01:31] VITALS: TEMP 97.6
--- NOTE | 2024-12-08 01:42 | ERPHSYRPT ---
- History of Present Illness Time Seen by Provider: 12/08/24 01:33 Source: patient Exam Limitations: no limitations Patient Subjective Stated Complaint: c/o right sided rib pain Triage Nursing Assessment: patient brought to ED by son with c/o right sided rib pain and shortness of breath. patient states that she was at work and suddenly had a sharp stabbing pain in her side. patient has audible wheezing, 96% on RA upon arrival, brought in by wheelchair Physician History: Patient is a 49-year-old female presents to our ED for evaluation of right-sided rib pain and shortness of breath. Patient states symptoms started acutely while she was working. No trauma no fever no nausea no vomiting no diaphoresis. Symptoms are mild to moderate in intensity. No specific worsening or improving factors. Patient voices no other complaints or concerns at this time. Portions of this note were created with voice recognition technology. There may be grammatical, spelling, punctuation or sound alike errors Timing/Duration: today Severity: moderate Associated Symptoms: denies symptoms Allergies/Adverse Reactions: Penicillins Allergy (Verified 12/08/24 01:22) Anaphylactic Reaction codeine Adverse Reaction (Verified 12/08/24 01:22) Vomiting Home Medications: Levothyroxine Sodium 50 Mcg [Synthroid 50 Mcg] 100 mcg PO DAILY 07/11/18 [History] Citalopram Hydrobromide 20 mg* [ceLEXa 20 MG] 20 mg PO DAILY 07/12/18 [History] Hydrochlorothiazide 25 mg [hydroDIURIL 25 MG] 25 mg PO DAILY 02/24/24 [History] Hydroxyzine HCl 25 mg [Atarax 25 mg] 25 mg PO TID PRN 02/24/24 [History] Hx Tetanus, Diphtheria Vaccination/Date Given: No (unknown) Hx Influenza Vaccination/Date Given: No Hx Pneumococcal Vaccination/Date Given: No Travel Risk - International Travel Have you traveled outside of the country in past 3 weeks: No - Emerging Infectious Disease Are you exhibiting symptoms associated with any current EIDs: Yes Symptoms: Shortness of Breath - Review of Systems Constitutional: No Symptoms, No Fever, No Chills Eyes: No Symptoms Ears, Nose, & Throat: No Symptoms Respiratory: No Symptoms, No Cough, No Dyspnea Cardiac: No Symptoms, No Chest Pain, No Edema, No Syncope Abdominal/Gastrointestinal: No Symptoms, No Abdominal Pain, No Nausea, No Vomiting, No Diarrhea Genitourinary Symptoms: No Symptoms, No Dysuria Musculoskeletal: No Symptoms, No Back Pain, No Neck Pain Skin: No Symptoms, No Rash Neurological: No Symptoms, No Dizziness, No Focal Weakness, No Sensory Changes Psychological: No Symptoms Endocrine: No Symptoms Hematologic/Lymphatic: No Symptoms Immunological/Allergic: No Symptoms All Other Systems: Reviewed and Negative - Past Medical History Pertinent Past Medical History: Yes Neurological History: No Pertinent History ENT History: No Pertinent History Cardiac History: No Pertinent History Respiratory History: Bronchitis Endocrine Medical History: No Pertinent History, Hypothyroidism Musculoskeletal History: Arthritis, Fractures GI Medical History: No Pertinent History History: No Pertinent History Psycho-Social History: Anxiety, Depression, Panic Disorder Female Reproductive Disorders: No Pertinent History Other Medical History: fx lt leg, rt ankle with 7 screws and a plate, pins to rt elbow, cellulitis - Past Surgical History Past Surgical History: Yes Neuro Surgical History: No Pertinent History Cardiac: No Pertinent History Respiratory: No Pertinent History Gastrointestinal: No Pertinent History Genitourinary: No Pertinent History Musculoskeletal: Orthopedic Surgery Female Surgical History: Section, Tubal Ligation Other Surgical History: R arm, R leg. x 3 - Female History Hx Last Menstrual Period: unsure Hx Now: No - Social History Smoking Status: Former smoker How long have you smoked: 16 yrs Exposure to second hand smoke: No Drug Use: none - Social Determinants of Health Will the patient participate in the screening: Yes Do you worry about a steady place to live?: No Do you have any problems with any of the following?: No known problems In the past 12 months,have you had to go without utilities?: No Transportation Issues: No Has anyone in your support network made you feel unsafe?: No Have you or anyone in your house had to go w/o enough food: No - Nursing Vital Signs Nursing Vital Signs: Initial Vital Signs Temperature 97.6 F 12/08/24 01:23 Pulse Rate 78 12/08/24 01:23 Respiratory Rate 18 12/08/24 01:23 Blood Pressure 133/72 12/08/24 01:23 O2 Sat by Pulse Oximetry 96 12/08/24 01:23 Pain Scale Pain Intensity 4 - Physical Exam General Appearance: no apparent distress, alert Eye Exam: PERRL/EOMI, eyes nml inspection Ears, Nose, Throat Exam: normal ENT inspection, TMs normal, pharynx normal, moist mucous membranes Neck Exam: normal inspection, non-tender, supple, full range of motion Respiratory Exam: normal breath sounds, lungs clear, No respiratory distress Cardiovascular Exam: regular rate/rhythm, normal heart sounds, normal peripheral pulses Gastrointestinal/Abdomen Exam: soft, normal bowel sounds, No tenderness, No mass Back Exam: normal inspection, normal range of motion, No CVA tenderness, No vertebral tenderness Extremity Exam: normal inspection, normal range of motion, pelvis stable Neurologic Exam: alert, oriented x 3, cooperative, normal mood/affect, sensation nml, No motor deficits Skin Exam: normal color, warm, dry, No rash Lymphatic Exam: No adenopathy SpO2 Interpretation: normal SpO2: 96 O2 Delivery: Room Air - Course Nursing assessment & vital signs reviewed: Yes EKG Interpreted by Me: RATE (73), Sinus Rhythm, NORMAL AXIS, NORMAL INTERVALS, NORMAL QRS Ordered Tests: Active Orders 24 hr Category Date Time Status AMA [Release AMA] OM.NOW Care 12/08/24 07:11 Ordered Foot Miter Operator STAT Care 12/08/24 01:35 Active EKG-ER Only STAT Care 12/08/24 01:33 Active IV Insertion STAT Care 12/08/24 01:33 Active Pulse Oximetry (ED) STAT Care 12/08/24 01:33 Active CBC W DIFF Stat Lab 12/08/24 02:00 Completed CMP Stat Lab 12/08/24 02:00 Completed D-DIMER QUANTITATIVE Stat Lab 12/08/24 02:00 Completed TROPONIN Q4H Lab 12/08/24 02:00 Completed TROPONIN Q4H Lab 12/08/24 05:55 Completed TROPONIN Q4H Lab 12/08/24 09:45 Ordered Respiratory Therapy Assessment DAILY RT 12/08/24 04:02 Active Medication Summary Discontinued Medications Generic Name Dose Route Start Last Admin Trade Name Freq PRN Reason Stop Dose Admin Albuterol/Ipratropium 3 ml 12/08/24 03:44 12/08/24 04:01 Ipratropium/Albuterol Sulfate 3 Ml Ampul.Neb IH 12/08/24 03:45 3 ml STAT ONE Administration Albuterol/Ipratropium Confirm 12/08/24 03:48 Ipratropium/Albuterol Sulfate 3 Ml Ampul.Neb Administered 12/08/24 03:49 Dose 3 ml IH .STK-MED ONE Methylprednisolone Sodium 0 mg 12/08/24 03:44 12/08/24 03:52 Succinate 125 mg/ Sterile IV 12/08/24 03:45 125 mg Water 2 ml STAT ONE Administration Enoxaparin Sodium 80 mg 12/08/24 05:12 12/08/24 05:38 Enoxaparin Sodium 80 Mg/0.8 Ml Syringe SQ 12/08/24 05:13 80 mg STAT ONE Administration Enoxaparin Sodium Confirm 12/08/24 05:38 Enoxaparin Sodium 80 Mg/0.8 Ml Syringe Administered 12/08/24 05:39 Dose 80 mg SQ .STK-MED ONE Ketorolac Tromethamine 30 mg 12/08/24 01:49 12/08/24 01:57 Ketorolac Tromethamine 30 Mg/Ml Inj IV 12/08/24 01:50 30 mg STAT ONE Administration Ketorolac Tromethamine Confirm 12/08/24 01:56 Ketorolac Tromethamine 30 Mg/Ml Inj Administered 12/08/24 01:57 Dose 30 mg .ROUTE .STK-MED ONE Methylprednisolone Sodium Succinate Confirm 12/08/24 03:50 Methylprednis Sod Succ 125 Mg/2 Ml Vial Administered 12/08/24 03:51 Dose 125 mg .ROUTE .STK-MED ONE Sterile Water Confirm 12/08/24 03:50 Water For Injection,Sterile 10 Ml Vial Administered 12/08/24 03:51 Dose 10 ml IJ .STK-MED ONE Lab/Rad Data: Laboratory Result Diagrams 12/08/24 02:00 12/08/24 02:00 Laboratory Results 12/08/24 12/08/24 12/08/24 Range/Units 05:55 02:00 02:00 WBC (3.98-10.04) x10^3/uL RBC (3.93-5.22) x10^6/uL Hgb (11.2-15.7) g/dL Hct (34.1-44.9) % MCV (79.4-94.8) fL MCH (25.6-32.2) pg MCHC (32.2-35.5) g/dL RDW (11.7-14.4) % Plt Count (182-369) x10^3/uL MPV (9.4-12.3) fL Gran % (34.0-71.1) % Immature Gran % (Auto) (0.001-0.429) % Nucleat RBC Rel Count (0.00-0.2) % Eos # (Auto) (0.04-0.36) x10^3/uL Immature Gran # (Auto) (0.001-0.031) x10^3u/L Absolute Lymphs (auto) (1.18-3.74) x10^3/uL Absolute Monos (auto) (0.24-0.86) x10^3/uL Absolute Nucleated RBC (0.00-0.012) x10^3u/L Lymphocytes % (19.3-51.7) % Monocytes % (4.7-12.5) % Eosinophils % (0.7-5.8) % Basophils % (0.1-1.2) % Absolute Granulocytes (1.56-6.13) x10^3/uL Basophils # (0.01-0.08) x10^3/uL D-Dimer 1.71 H* (0.0-0.50) mg/L Sodium (135-145) mmol/L Potassium (3.5-5.1) mmol/L Chloride (98-107) mmol/L Carbon Dioxide (22-30) mmol/L Anion Gap (5-15) MEQ/L BUN (7-17) mg/dL Creatinine (0.52-1.04) mg/dL Estimated GFR ML/MIN Glucose (74-106) mg/dL Calcium (8.4-10.2) mg/dL Total Bilirubin (0.2-1.3) mg/dL AST (14-36) U/L ALT (0-35) U/L Alkaline Phosphatase (38-126) U/L Troponin I < 0.012 < 0.012 (0.000-0.033) ng/mL Serum Total Protein (6.3-8.2) g/dL Albumin (3.5-5.0) g/dL Slides for Path Review 12/08/24 12/08/24 Range/Units 02:00 02:00 WBC 7.4 (3.98-10.04) x10^3/uL RBC 4.66 (3.93-5.22) x10^6/uL Hgb 11.2 (11.2-15.7) g/dL Hct 38.9 (34.1-44.9) % MCV 83.5 (79.4-94.8) fL MCH 24.0 L (25.6-32.2) pg MCHC 28.8 L (32.2-35.5) g/dL RDW 18.1 H (11.7-14.4) % Plt Count 297 (182-369) x10^3/uL MPV 9.1 L (9.4-12.3) fL Gran % 72.8 H (34.0-71.1) % Immature Gran % (Auto) 0.3 (0.001-0.429) % Nucleat RBC Rel Count 0.0 (0.00-0.2) % Eos # (Auto) 0.14 (0.04-0.36) x10^3/uL Immature Gran # (Auto) 0.02 (0.001-0.031) x10^3u/L Absolute Lymphs (auto) 1.03 L (1.18-3.74) x10^3/uL Absolute Monos (auto) 0.78 (0.24-0.86) x10^3/uL Absolute Nucleated RBC 0.00 (0.00-0.012) x10^3u/L Lymphocytes % 13.8 L (19.3-51.7) % Monocytes % 10.5 (4.7-12.5) % Eosinophils % 1.9 (0.7-5.8) % Basophils % 0.7 (0.1-1.2) % Absolute Granulocytes 5.42 (1.56-6.13) x10^3/uL Basophils # 0.05 (0.01-0.08) x10^3/uL D-Dimer (0.0-0.50) mg/L Sodium 140 (135-145) mmol/L Potassium 4.3 (3.5-5.1) mmol/L Chloride 98 (98-107) mmol/L Carbon Dioxide 34 H (22-30) mmol/L Anion Gap 13.0 (5-15) MEQ/L BUN 19 H (7-17) mg/dL Creatinine 0.68 (0.52-1.04) mg/dL Estimated GFR 108.0 ML/MIN Glucose 93 (74-106) mg/dL Calcium 9.3 (8.4-10.2) mg/dL Total Bilirubin 0.60 (0.2-1.3) mg/dL AST 26 (14-36) U/L ALT 13 (0-35) U/L Alkaline Phosphatase 100 (38-126) U/L Troponin I (0.000-0.033) ng/mL Serum Total Protein 7.8 (6.3-8.2) g/dL Albumin 4.4 (3.5-5.0) g/dL Slides for Path Review YES - Progress Progress: improved Progress Note: I spoke to physician at [facility] who accepts transfer at 5:06 AM. They do have a CAT scan I can accommodate our patient. 12/08/24 05:11 49-year-old female presents to emergency department for evaluation of acute onset shortness of breath and right-sided rib pain. Physical exam reveals wheezing. D-dimer positive. We attempted a CT scan however due to patient's body weight and with CT scan was not successful. meter/relay technician reports that the table did not move with our patient on it. Patient received a dose of Lovenox. Case discussed with ER physician at [facility] who accepts transfer. Plan of care discussed with patient. She agrees to transfer to [facility] for further evaluation and treatment. Patient received a dose of Solu- Medrol in our ED. Breathing treatment administered. Patient resting comfortably. Patient voices no other complaints or concerns at this time. Portions of this note were created with voice recognition technology. There may be grammatical, spelling, punctuation or sound alike errors Complexity of problem addressed is moderate acute complicated. No critical care time. Complex of data reviewed and analyzed as extensive. Test ordered test reviewed results analyzed and correlated clinically with history and physical exam. Risk of complication and or risk of morbidity/mortality of patient management is high. Patient requires transfer to a facility that has a CT scanner that can accommodate our patient. Vital stable. Time spent to transfer patient is approximately 20 minutes. Plan of care established for shared decision making. No social determinants of health present to impede follow-up. Portions of this note were created with voice recognition technology. There may be grammatical, spelling, punctuation or sound alike errors 12/08/24 05:14 Patient decided to leave AGAINST MEDICAL ADVICE. She did not want to wait for transport. The earliest we can arrange transport is 11 AM this morning. Risks and discussed. Patient is of sound mind. Patient is appropriate to make informed and independent medical decisions. Patient understands that leaving AGAINST MEDICAL ADVICE can result in delayed diagnosis, increased risk of morbidity, mortality, short and long-term disability including . In spite of these risks, patient has decided to leave AGAINST MEDICAL ADVICE. Patient understands that she may return to our ED at any point if she reconsiders. Patient agrees to follow-up with her primary care doctor within 48 hours for reevaluation. Patient voices no other complaints or concerns at this time. We will release patient AGAINST MEDICAL ADVICE per their request. Portions of this note were created with voice recognition technology. There may be grammatical, spelling, punctuation or sound alike errors 12/08/24 07:15 Counseled pt/family regarding: lab results, diagnosis - Departure Departure Disposition: AMA Clinical Impression: Chest pain, Shortness of breath Condition: Stable Critical Care Time: No Referrals: KIRBY BEY, [facility] [Primary Care Provider, [facility]] - Follow up/PCP as directed
[2024-12-08] MEDS ORDERED: TORAdol 30 mg Injection ONE (01:56)
[2024-12-08] MEDS: TORAdol 30 mg Injection IV ONE (01:57)
[2024-12-08 02:06] LABS: Absolute Neutrophil Ct (ANC) 5.42 x10^3/uL (1.56-6.13); BASOPHIL % 0.7 % (0.1-1.2); Basophil (Absolute #) 0.05 x10^3/uL (0.01-0.08); Eosinophil % 1.9 % (0.7-5.8); Eosinophil (Absolute #) 0.14 x10^3/uL (0.04-0.36); Hematocrit 38.9 % (34.1-44.9); Hemoglobin 11.2 g/dL (11.2-15.7); IMMATURE GRAN # 0.02 x10^3u/L (0.001-0.031); IMMATURE GRAN % 0.3 % (0.001-0.429); Lymphocyte (Absolute #) 1.03 x10^3/uL (1.18-3.74); Lymphocytes % 13.8 % (19.3-51.7); Mean Cell Volume 83.5 fL (79.4-94.8); Mean Corpuscular Hgb Concent. 28.8 g/dL (32.2-35.5); Mean Platelet Volume 9.1 fL (9.4-12.3); Monocyte (Absolute #) 0.78 x10^3/uL (0.24-0.86); Monocytes % 10.5 % (4.7-12.5); Neutrophil % 72.8 % (34.0-71.1); Platelet Count 297 x10^3/uL (182-369); Red Blood Count 4.66 x10^6/uL (3.93-5.22); Red Cell Distribution Width 18.1 % (11.7-14.4); White Blood Count 7.4 x10^3/uL (3.98-10.04)
[2024-12-08 02:20] LABS: ALBUMIN 4.4 g/dL (3.5-5.0); BILIRUBIN,TOTAL 0.6 mg/dL (0.2-1.3); Calcium 9.3 mg/dL (8.4-10.2); Creatinine 1 0.68 mg/dL (0.52-1.04); Potassium 4.3 mmol/L (3.5-5.1); Total Protein 7.8 g/dL (6.3-8.2)
[2024-12-08] MEDS ORDERED: DUONEB 0.5-3 MG/3 ml Neb IH ONE (03:48)
[2024-12-08] MEDS ORDERED: solu-MEDROL ONE (03:50)
[2024-12-08] MEDS ORDERED: Sterile H2O 10 ml IJ ONE (03:50)
[2024-12-08] MEDS: solu-MEDROL 125 MG, Sterile H2O 10 ml 2 ML IV ONE (03:52)
[2024-12-08 03:59] LABS: Slide Review 1 YES
[2024-12-08] MEDS: DUONEB 0.5-3 MG/3 ml Neb IH ONE (04:01)
[2024-12-08] MEDS: ENOXAPARIN SODIUM SQ ONE (05:38)
[2024-12-08] MEDS ORDERED: ENOXAPARIN SODIUM SQ ONE (05:38)
[2024-12-08 07:02] VITALS: BP 155/89; PULSE 70; RESP 13
[2024-12-08 07:24] VITALS: O2SAT 96
== END 2024-12-08 07:20 | disposition left against medical advice (07) ==
LOC: ED 01:07
DX: R07.9 Chest pain, unspecified (principal); R06.02 Shortness of breath; R07.81 Pleurodynia; Z79.899 Other long term (current) drug therapy
CPT/HCPCS: 36415; 80053; 84484; 85025; 85379; 93005; 93041; 94640; 94760; 96374; 96375; 99284; J1650; J1885; J2919; A9270-GY